=== PATIENT | male | born 1940 | race Caucasian/White ===

== ENCOUNTER 2018-01-19 07:53 | Day surgery (SDC) | payer MEDICARE, BC ==
[~2018-01-19 07:53] MED LIST: Bacitracin Oint 1 GM U/D Packet ONE; Bupivacaine 0.5% 50 ML MDV ONE; Lidocaine 1% with EPINEPHrine 1:100,000 50 ML MDV ONE; Midazolam 1 MG/ML 2 ML SDV ONE; Propofol 200 MG/20 ML SDV ONE; fentaNYL 100 MCG/2 ML SDV ONE
[2018-01-19] MEDS ORDERED: Dextrose 5%-Lactated Ringers 1,000 ML IV SCH (08:15)
--- NOTE | 2018-01-27 15:05 | OR ---
DATE OF PROCEDURE: 01/19/2018 PREOPERATIVE DIAGNOSIS: Status post shave biopsy, basal cell carcinoma at the base of left neck. POSTOPERATIVE DIAGNOSIS: Wide reexcision of basal cell carcinoma at the base of left neck with layered closure ([id number]). ANESTHESIA: Local plus IV sedation. INDICATION FOR PROCEDURE: The patient presents status post shave biopsy of basal cell carcinoma at the base of the left neck, more or less in the posterior aspect. This is the area were relatively straightforward, wide reexcision could be obtained without any difficulty in closure. The plan is to proceed with an excision of this with layered closure and frozen section monitoring of the margins. Potential risks of procedure including bleeding, infection, recurrence of the process were reviewed, and the patient wishes to proceed. DETAILS OF PROCEDURE: The patient was taken to the operating room and placed in a supine position. The area of concern had been marked out preoperatively. The patient was turned out into a right lateral decubitus position, and IV sedation administered and the area prepped and draped. An elliptically oriented, somewhat oblique incision was then made. This was an elliptical incision made roughly 2 to 3 mm margin from the closed edges of the area of involvement. This was carried down through the skin into the subcutaneous tissue and the skin underlying the subcutaneous tissue removed. The margins were then labeled for the pathologist. Frozen section showed all margins to be clear of any evidence of a basal carcinoma. The incision was then closed with a 5-0 Vicryl subdermal stitches, and then 5-0 Prolene skin stitch. Dressing was applied. The patient was taken to the recovery room in satisfactory condition. The removal of area of involvement plus adequate margin was measured at 1.5 cm and the entire incision length was 4.5 cm. Dressing was applied and the patient was taken to the recovery room in satisfactory condition. Alfredo Coburn MD /[id number]
== END 2018-01-19 11:20 | disposition home or self-care (01) ==
LOC: JP.SDS 07:53
PROVIDERS: ATTEND Surgery
DX: C44.41 Basal cell carcinoma of skin of scalp and neck (principal); I12.9 Hypertensive chronic kidney disease with stage 1 through stage 4 chronic kidney disease, or unspecified chronic kidney disease; N18.3 Chronic kidney disease, stage 3 (moderate); E78.5 Hyperlipidemia, unspecified; I25.10 Atherosclerotic heart disease of native coronary artery without angina pectoris; I48.91 Unspecified atrial fibrillation; G47.33 Obstructive sleep apnea (adult) (pediatric)
CPT/HCPCS: 11622; 12042; 88305; 88331; 88332; J2250; J2704; J3010; J7042

== ENCOUNTER 2018-12-31 18:25 | Emergency (ER) | payer MEDICARE, BC ==
[2018-12-31] MEDS: Sodium Chloride 0.9% 1,000 ML IV ONE (19:04)
[2018-12-31] MEDS: Amiodarone 150 MG/3 ML SDV IVPUSH ONE (19:06)
--- NOTE | 2018-12-31 19:09 | EDM.PDOC ---
ED HPI GENERAL MEDICAL PROBLEM - General Chief Complaint: Cardiovascular Problem Stated Complaint: DIZZY SPELLS Time Seen by Provider: 12/31/18 19:03 Source of Information: Reports: Patient, Family History Limitations: Reports: No Limitations - History of Present Illness INITIAL COMMENTS - FREE TEXT/NARRATIVE: PT WAS DEFRIBRILATED ONCE AT HOME TODAY. hE IS ALSO HAVING EPISODES WHERE HE FEELS BLaNK AND THEN HE IS NORMAL. hE DID NOT HAVE CHEST PAIN. hE WAS SOMEWHAT SOB. Onset: Today, Sudden Duration: Hour(s): Location: Reports: Chest, Other (PT HAD HIS DEFRIBRILLATOR OFF. ) Associated Symptoms: Reports: Other ( FEELING BLANK WHEN HIS RHYTHM. ) - Related Data Allergies Allergy/AdvReac Type Severity Reaction Status Date / Time No Known Allergies Allergy Verified 01/05/19 15:38 Home Meds: Home Meds Acetaminophen [Tylenol] 650 mg PO Q6HR PRN 01/15/18 [History] Carvedilol [Coreg] 25 mg PO BID 01/15/18 [History] Cholecalciferol (Vitamin D3) [Vitamin D3] 1,000 unit PO DAILY 01/15/18 [History] Folic Acid 400 mcg PO DAILY 01/15/18 [History] Furosemide [Lasix] 40 mg PO DAILY 01/15/18 [History] Lisinopril [Prinivil] 20 mg PO DAILY 01/15/18 [History] Methotrexate 7 tab PO WEEKLY 01/15/18 [History] Omeprazole 20 mg PO .QOD 01/15/18 [History] Pravastatin [Pravachol] 80 mg PO BEDTIME 01/15/18 [History] Tamsulosin HCl [Flomax] 0.4 mg PO DAILY 01/15/18 [History] Warfarin [Coumadin] 2.5 mg PO DAILY 01/15/18 [History] sulfaSALAzine [Azulfidine] 500 mg PO QID 01/15/18 [History] Amiodarone [Cordarone] 200 mg PO BID 01/05/19 [History] Cefdinir 300 mg PO Q12H 01/05/19 [History] metOLazone [Metolazone] 2.5 mg PO DAILY 01/05/19 [History] Past Medical History HEENT History: Reports: Cataract, Impaired Vision Other HEENT History: wear glasses Cardiovascular History: Reports: Afib, CAD, High Cholesterol, Hypertension, [place] Respiratory History: Reports: Sleep Apnea Gastrointestinal History: Reports: GERD Genitourinary History: Reports: Renal Disease Musculoskeletal History: Reports: RA Neurological History: Reports: Migraines Oncologic (Cancer) History: Reports: Basal Cell Carcinoma - Infectious Disease History Infectious Disease History: Reports: Chicken Pox, Measles - Past Surgical History HEENT Surgical History: Reports: Adenoidectomy, Cataract Surgery, Tonsillectomy Cardiovascular Surgical History: Reports: Other (See Below) Other Cardiovascular Surgeries/Procedures: defib GI Surgical History: Reports: Colonoscopy, Hernia, Inguinal Social & Family History - Family History Family Medical History: Noncontributory - Tobacco Use Smoking Status *Q: Never Smoker - Caffeine Use Caffeine Use: Reports: None - Recreational Drug Use Recreational Drug Use: No ED ROS GENERAL - Review of Systems Review Of Systems: See Below Constitutional: Reports: No Symptoms HEENT: Reports: No Symptoms Respiratory: Reports: Shortness of Breath Cardiovascular: Reports: Palpitations, Other ( FEELING LIKE THE RHYTHM WAS DIFFERENT SEVERAL TIMES TODAY. ) Endocrine: Reports: No Symptoms GI/Abdominal: Reports: No Symptoms Musculoskeletal: Reports: No Symptoms Skin: Reports: No Symptoms ED EXAM, GENERAL - Physical Exam Exam: See Below Free Text/Narrative:: PT ARRIVED BECAUS HIS DEFRIBRILATOR WENT OFF ONCE. hE ALSO HAS HAD EPISODES WHERE HE DOES NOT FEEL LIKE HIS RHYTHM IS RIGHT. aT THAT TIME HE HAS A BLANK FEELING. hE HAS NOT HAD CHEST PAIN Exam Limited By: No Limitations General Appearance: Alert, Moderate Distress, Other (PUPILS EQUAL AND REACTIVE. ) Ears: Normal TMs Nose: Normal Inspection Throat/Mouth: Normal Inspection Head: Atraumatic Neck: Normal Inspection Respiratory/Chest: No Respiratory Distress, Other (HE HAS NOTED RECENTLY WHEN HE EXERCISES THAT HE GETS QUITE SOB. ) Cardiovascular: Tachycardia, Other (PT IS HAVING RUNS OF vTACH. ) GI/Abdominal: Soft, Non-Tender (Male) Exam: Deferred Rectal (Males) Exam: Deferred Back Exam: Normal Inspection Extremities: Pedal Edema, Other (PT HAS PLUS 3 EDEMA. ) Neurological: Alert, Oriented, Normal Cognition Psychiatric: Normal Affect Course - Vital Signs Last Recorded V/S: Last Vital Signs Temp 36.3 C 12/31/18 19:56 Pulse 102 H 12/31/18 19:56 Resp 24 H 12/31/18 19:56 BP 175/94 H 12/31/18 19:56 Pulse Ox 94 L 12/31/18 19:56 - Orders/Labs/Meds Labs: Laboratory Tests 12/31/18 12/31/18 12/31/18 Range/Units 18:47 18:47 18:48 WBC 7.0 (4.5-11.0) K/uL RBC 3.86 L (4.30-5.90) M/uL Hgb 12.5 (12.0-15.0) g/dL Hct 38.2 L (40.0-54.0) % MCV 99 H (80-98) fL MCH 32 H (27-31) pg MCHC 33 (32-36) % Plt Count 175 (150-400) K/uL Neut % (Auto) 61 (36-66) % Lymph % (Auto) 14 L (24-44) % [place] % (Auto) 23 H (2-6) % Eos % (Auto) 1 L (2-4) % Baso % (Auto) 1 (0-1) % Sodium 135 L (140-148) mmol/L Potassium 3.8 (3.6-5.2) mmol/L Chloride 99 L (100-108) mmol/L Carbon Dioxide 27 (21-32) mmol/L Anion Gap 12.8 (5.0-14.0) mmol/L BUN 13 (7-18) mg/dL Creatinine 1.1 (0.8-1.3) mg/dL Est Cr Clr Drug Dosing 61.73 mL/min Estimated GFR (MDRD) > 60 (>60) Glucose 109 H (74-106) mg/dL Calcium 8.7 (8.5-10.1) mg/dL Magnesium (1.8-2.4) mg/dL Total Bilirubin 0.9 (0.2-1.0) mg/dL AST 31 (15-37) U/L ALT 27 (12-78) U/L Alkaline Phosphatase 79 (46-116) U/L Troponin I (0.000-0.056) ng/mL NT-Pro-B Natriuret Pep (5-450) pg/mL Total Protein 7.2 (6.4-8.2) g/dL Albumin 3.2 L (3.4-5.0) g/dL Globulin 4.0 H (2.3-3.5) g/dL Albumin/Globulin Ratio 0.8 L (1.2-2.2) Urine Color Yellow Urine Appearance Clear Urine pH 6.0 (4.5-8.0) Ur Specific [place] 1.015 (1.008-1.030) Urine Protein Trace (NEGATIVE) mg/dL Urine Glucose (UA) Normal (NEGATIVE) mg/dL Urine Ketones Negative (NEGATIVE) mg/dL Urine Occult Blood Moderate (NEGATIVE) Urine Nitrite Negative (NEGAITVE) Urine Bilirubin Negative (NEGATIVE) Urine Urobilinogen Normal (NORMAL) mg/dL Ur Leukocyte Esterase Negative (NEGATIVE) Urine RBC 5-10 H (0-5) Urine WBC Not seen (0-5) Ur Epithelial Cells Not seen Amorphous Sediment Not seen Urine Bacteria Rare Urine Mucus Not seen 12/31/18 12/31/18 12/31/18 Range/Units 19:10 19:17 19:18 WBC (4.5-11.0) K/uL RBC (4.30-5.90) M/uL Hgb (12.0-15.0) g/dL Hct (40.0-54.0) % MCV (80-98) fL MCH (27-31) pg MCHC (32-36) % Plt Count (150-400) K/uL Neut % (Auto) (36-66) % Lymph % (Auto) (24-44) % [place] % (Auto) (2-6) % Eos % (Auto) (2-4) % Baso % (Auto) (0-1) % Sodium (140-148) mmol/L Potassium (3.6-5.2) mmol/L Chloride (100-108) mmol/L Carbon Dioxide (21-32) mmol/L Anion Gap (5.0-14.0) mmol/L BUN (7-18) mg/dL Creatinine (0.8-1.3) mg/dL Est Cr Clr Drug Dosing mL/min Estimated GFR (MDRD) (>60) Glucose (74-106) mg/dL Calcium (8.5-10.1) mg/dL Magnesium 1.7 L (1.8-2.4) mg/dL Total Bilirubin (0.2-1.0) mg/dL AST (15-37) U/L ALT (12-78) U/L Alkaline Phosphatase (46-116) U/L Troponin I 0.032 (0.000-0.056) ng/mL NT-Pro-B Natriuret Pep 6300 H (5-450) pg/mL Total Protein (6.4-8.2) g/dL Albumin (3.4-5.0) g/dL Globulin (2.3-3.5) g/dL Albumin/Globulin Ratio (1.2-2.2) Urine Color Urine Appearance Urine pH (4.5-8.0) Ur Specific [place] (1.008-1.030) Urine Protein (NEGATIVE) mg/dL Urine Glucose (UA) (NEGATIVE) mg/dL Urine Ketones (NEGATIVE) mg/dL Urine Occult Blood (NEGATIVE) Urine Nitrite (NEGAITVE) Urine Bilirubin (NEGATIVE) Urine Urobilinogen (NORMAL) mg/dL Ur Leukocyte Esterase (NEGATIVE) Urine RBC (0-5) Urine WBC (0-5) Ur Epithelial Cells Amorphous Sediment Urine Bacteria Urine Mucus Meds: Medications Discontinued Medications Generic Name Dose Route Start Last Admin Trade Name Freq PRN Reason Stop Dose Admin Amiodarone HCl 150 mg 12/31/18 18:50 12/31/18 19:06 Cordarone IVPUSH 12/31/18 18:51 150 mg ONETIME ONE Administration Furosemide 60 mg 12/31/18 19:12 12/31/18 19:20 Lasix IVPUSH 12/31/18 19:13 60 mg ONETIME ONE Administration Amiodarone HCl/Dextrose Confirm 12/31/18 18:47 12/31/18 19:58 Nexterone In Dextrose 150 Mg/100 Ml Administered 12/31/18 18:48 Not Given Dose 100 mls @ as directed IV .STK-MED ONE Sodium Chloride 1,000 mls @ 999 mls/hr 12/31/18 18:53 12/31/18 19:31 Normal Saline IV 12/31/18 19:53 125 mls/hr .BOLUS ONE Infusion Amiodarone HCl 450 mg/ 250 mls @ 33.33 mls/hr 12/31/18 19:00 12/31/18 19:03 Dextrose/Water IV 1 mg/min ASDIRECTED MARTI 33.33 mls/hr Administration Protocol 1 MG/MIN Magnesium Sulfate 2 gm/ Premix 50 mls @ 12.5 mls/hr 12/31/18 19:41 12/31/18 19:44 IV 12/31/18 23:40 12.5 mls/hr ONETIME ONE Administration Lidocaine HCl 10 ml 12/31/18 19:15 12/31/18 19:17 Xylocaine 2% Jelly MUCMEM 12/31/18 19:16 10 ml ONETIME ONE Administration Lidocaine HCl Confirm 12/31/18 19:15 12/31/18 19:32 Xylocaine 2% Jelly Administered 12/31/18 19:16 Not Given Dose 10 ml .ROUTE .[facility] ONE - Re-Assessments/Exams Free Text/Narrative Re-Assessment/Exam: 12/31/18 19:23 PT WAS GIVEN AMIRODONE 150 IV BOLUS AND A DRIP WAS STARTED. a CHEST XRAY LOOKED LIKE HE HAD A FLUID OVERLOAD IN HIS CHEST. hE HAD A NORMAL WBC. 12/31/18 19:24 URINE WAS CLEAR. hE WAS GIVEN 60 MG IV PUSH TO UNLOAD THE FLUID. Departure - Departure Time of Disposition: 20:40 Disposition: DC/Tfer to Acute Hospital 02 Reason for Transfer *Q: Primary PCI Indicated Condition: Fair Clinical Impression: Ventricular tachycardia, Defibrillator discharge, Fluid overload Referrals: Margot Rhoades PA [Primary Care Provider] - Forms: ED Department Discharge Care Plan Goals: TRANSFER TO [facility]
[2018-12-31] MEDS: Lidocaine 2% Jelly 10 ML Urojet MUCMEM ONE (19:17)
[2018-12-31] MEDS: Furosemide 40 MG/4 ML VIAL IVPUSH ONE (19:20)
[2018-12-31] MEDS: Lidocaine 2% Jelly 10 ML Urojet ONE (19:32)
[2018-12-31] MEDS: Magnesium Sulfate/Water 2 GM in Premix Bag 1 BAG IV ONE (19:44)
--- NOTE | 2018-12-31 19:57 | CRLCR ---
INDICATION: Tachycardia. COMPARISON: None. TECHNIQUE: One AP view. IMPRESSION: Heart size within normal limits. Low lung volumes. Hazy reticular interstitial markings diffusely. No definitive focal pneumonia. Left-sided pacing body and transvenous wires in the right heart. No significant acute bone findings. Dictated by Jason Sanford MD @ Dec 31 2018 7:54PM Signed by Dr. Jason Sanford @ Dec 31 2018 7:56PM
== END 2018-12-31 20:25 ==
LOC: JP.ED 18:25
DX: T82.198A Other mechanical complication of other cardiac electronic device, initial encounter (principal); I47.2 Ventricular tachycardia; E87.70 Fluid overload, unspecified; I10 Essential (primary) hypertension; I48.91 Unspecified atrial fibrillation; I25.10 Atherosclerotic heart disease of native coronary artery without angina pectoris; E78.00 Pure hypercholesterolemia, unspecified; I25.2 Old myocardial infarction; K21.9 Gastro-esophageal reflux disease without esophagitis; Z79.899 Other long term (current) drug therapy
CPT/HCPCS: 36415; 51702; 71045; 80053; 81001; 83735; 83880; 84484; 85025; 93005; 96365; 96367; 96375; 96376; 99285; J0282; J1940; J3475; J7030; J7060

== ENCOUNTER 2019-01-05 15:09 | Inpatient (IN) | payer MEDICARE, BC ==
[2019-01-05] MEDS ORDERED: Sodium Chloride 0.9% 10 ML Syringe FLUSH PRN ×2 (16:58→20:16)
[2019-01-05] MEDS ORDERED: Furosemide 40 MG/4 ML VIAL IVPUSH ONE (17:00)
--- NOTE | 2019-01-05 17:04 | EDM.PDOC ---
ED HPI GENERAL MEDICAL PROBLEM - General Chief Complaint: General Stated Complaint: SOB Time Seen by Provider: 01/05/19 16:29 Source of Information: Reports: Patient, Family, Old Records, RN Notes Reviewed History Limitations: Reports: No Limitations - History of Present Illness INITIAL COMMENTS - FREE TEXT/NARRATIVE: 78-year-old gentleman presents to emergency department day complaint of a dizzy feeling and more shortness of breath than usual does have a known history of systolic congestive heart failure ejection fraction between 30 and 35% recently had his AICD provider shock for ventricular tachycardia. Was admitted the hospital underwent echocardiogram and angiograph medications were adjusted recently added amiodarone and metolazone since discharge from the hospital. Has recently completed a course of Ceftin. He describes the dizziness as a fall feeling feels lightheaded has had some issues of near syncope in the past - Related Data Allergies Allergy/AdvReac Type Severity Reaction Status Date / Time No Known Allergies Allergy Verified 01/05/19 15:38 Home Meds: Home Meds Acetaminophen [Tylenol] 650 mg PO Q6HR PRN 01/15/18 [History] Carvedilol [Coreg] 25 mg PO BID 01/15/18 [History] Cholecalciferol (Vitamin D3) [Vitamin D3] 1,000 unit PO DAILY 01/15/18 [History] Folic Acid 400 mcg PO DAILY 01/15/18 [History] Furosemide [Lasix] 40 mg PO DAILY 01/15/18 [History] Lisinopril [Prinivil] 20 mg PO DAILY 01/15/18 [History] Methotrexate 7 tab PO WEEKLY 01/15/18 [History] Omeprazole 20 mg PO .QOD 01/15/18 [History] Pravastatin [Pravachol] 80 mg PO BEDTIME 01/15/18 [History] Tamsulosin HCl [Flomax] 0.4 mg PO DAILY 01/15/18 [History] Warfarin [Coumadin] 2.5 mg PO DAILY 01/15/18 [History] sulfaSALAzine [Azulfidine] 500 mg PO QID 01/15/18 [History] Amiodarone [Cordarone] 200 mg PO BID 01/05/19 [History] Cefdinir 300 mg PO Q12H 01/05/19 [History] metOLazone [Metolazone] 2.5 mg PO DAILY 01/05/19 [History] Past Medical History HEENT History: Reports: Cataract, Impaired Vision Other HEENT History: wear glasses Cardiovascular History: Reports: Afib, CAD, Heart Failure (Systolic), High Cholesterol, Hypertension, [place] Respiratory History: Reports: Sleep Apnea Gastrointestinal History: Reports: GERD Genitourinary History: Reports: Renal Disease Musculoskeletal History: Reports: RA Neurological History: Reports: Migraines Oncologic (Cancer) History: Reports: Basal Cell Carcinoma - Infectious Disease History Infectious Disease History: Reports: Chicken Pox, Measles - Past Surgical History Head Surgeries/Procedures: Reports: None HEENT Surgical History: Reports: Adenoidectomy, Cataract Surgery, Tonsillectomy Cardiovascular Surgical History: Reports: Other (See Below) Other Cardiovascular Surgeries/Procedures: defib. angiogram Respiratory Surgical History: Reports: None GI Surgical History: Reports: Colonoscopy, Hernia, Inguinal Male Surgical History: Reports: None Neurological Surgical History: Reports: None Oncologic Surgical History: Reports: None Social & Family History - Family History Family Medical History: Noncontributory - Tobacco Use Smoking Status *Q: Never Smoker Second Hand Smoke Exposure: No - Caffeine Use Caffeine Use: Reports: Tea - Recreational Drug Use Recreational Drug Use: No ED ROS GENERAL - Review of Systems Review Of Systems: See Below Constitutional: Reports: No Symptoms HEENT: Reports: No Symptoms Respiratory: Reports: Shortness of Breath Cardiovascular: Reports: Dyspnea on Exertion, Lightheadedness GI/Abdominal: Reports: No Symptoms : Reports: No Symptoms ED EXAM, GENERAL - Physical Exam Exam: See Below Exam Limited By: No Limitations General Appearance: Alert, WD/WN, No Apparent Distress Neck: Normal Inspection, Supple, Non-Tender, Full Range of Motion Respiratory/Chest: No Respiratory Distress, No Accessory Muscle Use, Decreased Breath Sounds, Crackles Cardiovascular: Regular Rate, Rhythm, No Murmur GI/Abdominal: Soft, Non-Tender Course - Vital Signs Last Recorded V/S: Last Vital Signs Temp 97.3 F 01/05/19 15:26 Pulse 85 01/05/19 17:47 Resp 21 H 01/05/19 17:47 BP 136/67 01/05/19 17:47 Pulse Ox 91 L 01/05/19 17:47 - Orders/Labs/Meds Orders: Active Orders 24 hr Category Date Time Status Cardiac Monitoring [RC] .As Directed Care 01/05/19 16:58 Active EKG Documentation Completion [RC] ASDIRECTED Care 01/05/19 17:03 Active Sodium Chloride 0.9% [Saline Flush] Med 01/05/19 16:58 Active 10 ml FLUSH ASDIRECTED PRN Saline Lock Insert [OM.PC] Stat Oth 01/05/19 16:58 Ordered EKG 12 Lead [EK] Stat Ther 01/05/19 17:03 Ordered Medication Orders Sodium Chloride (Saline Flush) 10 ml FLUSH ASDIRECTED PRN PRN Reason: Keep Vein Open Last Admin: 01/05/19 17:10 Dose: 10 ml Labs: Laboratory Tests 01/05/19 01/05/19 01/05/19 Range/Units 17:00 17:00 17:00 WBC 7.2 (4.5-11.0) K/uL RBC 3.67 L (4.30-5.90) M/uL Hgb 11.7 L (12.0-15.0) g/dL Hct 36.2 L (40.0-54.0) % MCV 99 H (80-98) fL MCH 32 H (27-31) pg MCHC 32 (32-36) % Plt Count 222 (150-400) K/uL Neut % (Auto) 61 (36-66) % Lymph % (Auto) 13 L (24-44) % [place] % (Auto) 22 H (2-6) % Eos % (Auto) 3 (2-4) % Baso % (Auto) 1 (0-1) % PT 16.9 H (9.5-12.0) sec INR 1.58 H (0.80-1.20) Sodium 135 L (140-148) mmol/L Potassium 3.6 (3.6-5.2) mmol/L Chloride 97 L (100-108) mmol/L Carbon Dioxide 29 (21-32) mmol/L Anion Gap 12.6 (5.0-14.0) mmol/L BUN 17 (7-18) mg/dL Creatinine 1.2 (0.8-1.3) mg/dL Est Cr Clr Drug Dosing 56.58 mL/min Estimated GFR (MDRD) 59 L (>60) Glucose 120 H (74-106) mg/dL Calcium 8.7 (8.5-10.1) mg/dL Total Bilirubin 1.0 (0.2-1.0) mg/dL AST 50 H (15-37) U/L ALT 41 (12-78) U/L Alkaline Phosphatase 86 (46-116) U/L Troponin I 0.032 (0.000-0.056) ng/mL NT-Pro-B Natriuret Pep (5-450) pg/mL Total Protein 6.9 (6.4-8.2) g/dL Albumin 2.7 L (3.4-5.0) g/dL Globulin 4.2 H (2.3-3.5) g/dL Albumin/Globulin Ratio 0.6 L (1.2-2.2) 01/05/19 Range/Units 17:00 WBC (4.5-11.0) K/uL RBC (4.30-5.90) M/uL Hgb (12.0-15.0) g/dL Hct (40.0-54.0) % MCV (80-98) fL MCH (27-31) pg MCHC (32-36) % Plt Count (150-400) K/uL Neut % (Auto) (36-66) % Lymph % (Auto) (24-44) % [place] % (Auto) (2-6) % Eos % (Auto) (2-4) % Baso % (Auto) (0-1) % PT (9.5-12.0) sec INR (0.80-1.20) Sodium (140-148) mmol/L Potassium (3.6-5.2) mmol/L Chloride (100-108) mmol/L Carbon Dioxide (21-32) mmol/L Anion Gap (5.0-14.0) mmol/L BUN (7-18) mg/dL Creatinine (0.8-1.3) mg/dL Est Cr Clr Drug Dosing mL/min Estimated GFR (MDRD) (>60) Glucose (74-106) mg/dL Calcium (8.5-10.1) mg/dL Total Bilirubin (0.2-1.0) mg/dL AST (15-37) U/L ALT (12-78) U/L Alkaline Phosphatase (46-116) U/L Troponin I (0.000-0.056) ng/mL NT-Pro-B Natriuret Pep 4233 H (5-450) pg/mL Total Protein (6.4-8.2) g/dL Albumin (3.4-5.0) g/dL Globulin (2.3-3.5) g/dL Albumin/Globulin Ratio (1.2-2.2) Meds: Medications Generic Name Dose Route Start Last Admin Trade Name Freq PRN Reason Stop Dose Admin Sodium Chloride 10 ml 01/05/19 16:58 01/05/19 17:10 Saline Flush FLUSH 10 ml ASDIRECTED PRN Administration Keep Vein Open Discontinued Medications Generic Name Dose Route Start Last Admin Trade Name Freq PRN Reason Stop Dose Admin Furosemide 80 mg 01/05/19 17:00 01/05/19 17:09 Lasix IVPUSH 01/05/19 17:01 80 mg ONETIME ONE Administration Departure - Departure Time of Disposition: 18:11 Disposition: Refer to Observation Condition: Fair Clinical Impression: CHF, Congestive heart failure - Discharge Information Referrals: Margot Rhoades PA [Primary Care Provider] - Forms: ED Department Discharge - My Orders Last 24 Hours: My Active Orders 01/05/19 16:58 Cardiac Monitoring [RC] .As Directed Sodium Chloride 0.9% [Saline Flush] 10 ml FLUSH ASDIRECTED PRN Saline Lock Insert [OM.PC] Stat 01/05/19 17:03 EKG Documentation Completion [RC] ASDIRECTED EKG 12 Lead [EK] Stat - Assessment/Plan Last 24 Hours: My Active Orders 01/05/19 16:58 Cardiac Monitoring [RC] .As Directed Sodium Chloride 0.9% [Saline Flush] 10 ml FLUSH ASDIRECTED PRN Saline Lock Insert [OM.PC] Stat 01/05/19 17:03 EKG Documentation Completion [RC] ASDIRECTED EKG 12 Lead [EK] Stat Plan: Assessment Acuity = acute on chronic Site and laterality = exacerbation systolic congestive heart failure , complicated in a patient with known history of atrial fibrillation on chronic anticoagulation therapy Etiology = unknown etiology Manifestations = hypoxia Location of injury = Home Lab values = hemoglobin low 11.7 consistent neck chromic anemia INR subtherapeutic 1.58 BNP elevated at 4233 troponin is within normal limits 0.032 chest x-ray shows no acute process EKG demonstrates a paced rhythm Plan Call discuss case hospitalist on-call at 1800 the agreed to come and evaluate the patient emergency department for admission he was given 80 mg Lasix IV in the ED however remains hypoxic on 1 L of oxygen This note was dictated using [employer] voice recognition software please call with any questions on syntax or grammar.
--- NOTE | 2019-01-05 17:48 | CRLCR ---
INDICATION: sob INDICATION: Shortness of breath TECHNIQUE: Chest 1 view. COMPARISON: FINDINGS: Cardiovascular and mediastinum: Heart size is upper limits of normal and stable. Left-sided transvenous pacer device.. Mediastinum is within normal limits. Lungs and pleural space: Lungs are clear. No sign of infiltrate or mass. No sign of pleural effusion. No pneumothorax. Bones and soft tissues: No significant findings. IMPRESSION: No acute pulmonary or cardiac abnormalities. Dictated by Rey Moran MD @ 01/05/2019 5:47:35 PM Dictated by: Rey Moran MD @ 01/05/2019 17:47:44 (Electronically Signed)
--- NOTE | 2019-01-05 19:29 | PCM.HP ---
H&P History of Present Illness - General Date of Service: 01/05/19 Admit Problem/Dx: Admission Diagnosis/Problem Admission Diagnosis/Problem CHF, Congestive heart failure Source of Information: Patient, Family ( Wendy), Provider History Limitations: Reports: No Limitations - History of Present Illness Initial Comments - Free Text/Narative: - History of Present Illness 78-year-old gentleman presents to emergency department day complaint of a dizzy feeling and more shortness of breath than usual does have a known history of systolic congestive heart failure ejection fraction between 30 and 35% recently had his AICD provided shock for ventricular tachycardia. Was admitted (12/31/18) the hospital underwent echocardiogram and angiograph medications were adjusted recently added amiodarone and metolazone since discharge (01/03/19) from the hospital. Has recently completed a course of Ceftin. He describes the dizziness as "a fall feeling" feels lightheaded has had some issues of near syncope in the past. He was seen today at [facility] by Dr. Laura, Primary Care. She noted the shortness of breath, told Mr. and Mrs. Mancia if the shortness of breath worsen to go to the ER. Assessment Acuity = acute on chronic Site and laterality = exacerbation systolic congestive heart failure, complicated in a patient with known history of atrial fibrillation on chronic anticoagulation therapy Etiology = unknown etiology Manifestations = hypoxia with dizziness Lab values = hemoglobin low 11.7 consistent chromic anemia, INR subtherapeutic 1.58, BNP elevated at 4233, troponin is within normal limits 0.032, chest x- ray shows no acute process, EKG demonstrates a paced rhythm Plan Call discuss case hospitalist on-call at 1800 the agreed to come and evaluate the patient emergency department for admission he was given 80 mg Lasix IV in the ED however remains hypoxic on 1 L of oxygen Onset of Symptoms: Reports: Today Duration of Symptoms: Reports: Hour(s): Location: Reports: Generalized (shortness of breath.) Quality: Reports: Same as Previous Episode Severity: Moderate Improves with: Reports: Eating Worsens with: Reports: Movement Associated Symptoms: Reports: Shortness of Breath, Weakness - Related Data Allergies/Adverse Reactions: Allergies Allergy/AdvReac Type Severity Reaction Status Date / Time No Known Allergies Allergy Verified 01/05/19 15:38 Home Medications: Home Meds Acetaminophen [Tylenol] 650 mg PO Q6HR PRN 01/15/18 [History] Carvedilol [Coreg] 25 mg PO BID 01/15/18 [History] Cholecalciferol (Vitamin D3) [Vitamin D3] 1,000 unit PO DAILY 01/15/18 [History] Folic Acid 400 mcg PO DAILY 01/15/18 [History] Furosemide [Lasix] 40 mg PO DAILY 01/15/18 [History] Lisinopril [Prinivil] 20 mg PO DAILY 01/15/18 [History] Methotrexate 7 tab PO WEEKLY 01/15/18 [History] Omeprazole 20 mg PO .QOD 01/15/18 [History] Pravastatin [Pravachol] 80 mg PO BEDTIME 01/15/18 [History] Tamsulosin HCl [Flomax] 0.4 mg PO DAILY 01/15/18 [History] Warfarin [Coumadin] 2.5 mg PO DAILY 01/15/18 [History] sulfaSALAzine [Azulfidine] 500 mg PO QID 01/15/18 [History] Amiodarone [Cordarone] 200 mg PO BID 01/05/19 [History] Cefdinir 300 mg PO Q12H 01/05/19 [History] metOLazone [Metolazone] 2.5 mg PO DAILY 01/05/19 [History] Past Medical History HEENT History: Reports: Cataract, Impaired Vision Other HEENT History: wear glasses Cardiovascular History: Reports: Afib, CAD, Heart Failure (Systolic), High Cholesterol, Hypertension, IA Respiratory History: Reports: Sleep Apnea Gastrointestinal History: Reports: GERD Genitourinary History: Reports: Renal Disease Musculoskeletal History: Reports: RA Neurological History: Reports: Migraines Oncologic (Cancer) History: Reports: Basal Cell Carcinoma - Infectious Disease History Infectious Disease History: Reports: Chicken Pox, Measles - Past Surgical History Head Surgeries/Procedures: Reports: None HEENT Surgical History: Reports: Adenoidectomy, Cataract Surgery, Tonsillectomy Cardiovascular Surgical History: Reports: Other (See Below) Other Cardiovascular Surgeries/Procedures: defib. angiogram Respiratory Surgical History: Reports: None GI Surgical History: Reports: Colonoscopy, Hernia, Inguinal Male Surgical History: Reports: None Neurological Surgical History: Reports: None Oncologic Surgical History: Reports: None Social & Family History - Family History Family Medical History: Noncontributory - Tobacco Use Smoking Status *Q: Never Smoker Second Hand Smoke Exposure: No - Caffeine Use Caffeine Use: Reports: Tea - Recreational Drug Use Recreational Drug Use: No H&P Review of Systems - Review of Systems: Review Of Systems: See Below General: Reports: Fatigue HEENT: Reports: Glasses Pulmonary: Reports: Shortness of Breath, Cough, Other (recent treatment for pnuemonia, antibiotics started on 12/31/2018.) Cardiovascular: Reports: Dyspnea on Exertion, Edema, Lightheadedness Gastrointestinal: Reports: No Symptoms, Other (reports had a large formed stool prior to going to ER. denies any black tarry or blood stools) Genitourinary: Reports: No Symptoms Musculoskeletal: Reports: No Symptoms Skin: Reports: No Symptoms Psychiatric: Reports: No Symptoms Neurological: Reports: Dizziness (chronic), Pre-Existing Deficit Hematologic/Lymphatic: Reports: Easy Bleeding (Coumadin therapy), Easy Bruising (Coumadin therapy) Exam - Exam Exam: See Below - Vital Signs Vital Signs: Last Vital Signs Temp 36.3 C 01/05/19 15:26 Pulse 83 01/05/19 19:24 Resp 26 H 01/05/19 19:24 BP 129/72 01/05/19 19:24 Pulse Ox 90 L 01/05/19 19:24 Weight: 97.976 kg - Exam Quality Assessment: Supplemental Oxygen (2l per NC), DVT Prophylaxis, Other ( left AC saline lock) General: Alert, Oriented, Cooperative, Mild Distress (oxygen saturation decrease to low 80's with any activity, increase Oxygen to 2 l per NC.) HEENT: PERRLA, Conjunctiva Clear, EACs Clear, EOMI, Hearing Intact, Mucosa Moist & [place], Posterior Pharynx Clear, Glasses Neck: Supple, Trachea Midline, 2 Lungs: Decreased Breath Sounds, Crackles (bilateral, inspiration and expiratory) Cardiovascular: Irregular Rhythm GI/Abdominal Exam: Normal Bowel Sounds, Soft, Non-Tender (Male) Exam: Deferred Rectal (Males) Exam: Deferred Back Exam: Normal Inspection, Full Range of Motion Extremities: Normal Range of Motion, Non-Tender, Pedal Edema (1+ edema noted to lower legs. ) Skin: Warm, Dry, Intact Neurological: Strength Equal Bilateral, Normal Speech, Normal Tone Neuro Extensive - Mental Status: Alert, Oriented x3, Normal Mood/Affect, Normal Cognition Psychiatric: Alert, Normal Affect, Normal Mood - Patient Data Lab Results Last 24 hrs: Laboratory Results - last 24 hr 01/05/19 01/05/19 01/05/19 Range/Units 17:00 17:00 17:00 WBC 7.2 (4.5-11.0) K/uL RBC 3.67 L (4.30-5.90) M/uL Hgb 11.7 L (12.0-15.0) g/dL Hct 36.2 L (40.0-54.0) % MCV 99 H (80-98) fL MCH 32 H (27-31) pg MCHC 32 (32-36) % Plt Count 222 (150-400) K/uL Neut % (Auto) 61 (36-66) % Lymph % (Auto) 13 L (24-44) % [place] % (Auto) 22 H (2-6) % Eos % (Auto) 3 (2-4) % Baso % (Auto) 1 (0-1) % PT 16.9 H (9.5-12.0) sec INR 1.58 H (0.80-1.20) Sodium 135 L (140-148) mmol/L Potassium 3.6 (3.6-5.2) mmol/L Chloride 97 L (100-108) mmol/L Carbon Dioxide 29 (21-32) mmol/L Anion Gap 12.6 (5.0-14.0) mmol/L BUN 17 (7-18) mg/dL Creatinine 1.2 (0.8-1.3) mg/dL Est Cr Clr Drug Dosing 56.58 mL/min Estimated GFR (MDRD) 59 L (>60) Glucose 120 H (74-106) mg/dL Calcium 8.7 (8.5-10.1) mg/dL Total Bilirubin 1.0 (0.2-1.0) mg/dL AST 50 H (15-37) U/L ALT 41 (12-78) U/L Alkaline Phosphatase 86 (46-116) U/L Troponin I 0.032 (0.000-0.056) ng/mL NT-Pro-B Natriuret Pep (5-450) pg/mL Total Protein 6.9 (6.4-8.2) g/dL Albumin 2.7 L (3.4-5.0) g/dL Globulin 4.2 H (2.3-3.5) g/dL Albumin/Globulin Ratio 0.6 L (1.2-2.2) 01/05/19 Range/Units 17:00 WBC (4.5-11.0) K/uL RBC (4.30-5.90) M/uL Hgb (12.0-15.0) g/dL Hct (40.0-54.0) % MCV (80-98) fL MCH (27-31) pg MCHC (32-36) % Plt Count (150-400) K/uL Neut % (Auto) (36-66) % Lymph % (Auto) (24-44) % [place] % (Auto) (2-6) % Eos % (Auto) (2-4) % Baso % (Auto) (0-1) % PT (9.5-12.0) sec INR (0.80-1.20) Sodium (140-148) mmol/L Potassium (3.6-5.2) mmol/L Chloride (100-108) mmol/L Carbon Dioxide (21-32) mmol/L Anion Gap (5.0-14.0) mmol/L BUN (7-18) mg/dL Creatinine (0.8-1.3) mg/dL Est Cr Clr Drug Dosing mL/min Estimated GFR (MDRD) (>60) Glucose (74-106) mg/dL Calcium (8.5-10.1) mg/dL Total Bilirubin (0.2-1.0) mg/dL AST (15-37) U/L ALT (12-78) U/L Alkaline Phosphatase (46-116) U/L Troponin I (0.000-0.056) ng/mL NT-Pro-B Natriuret Pep 4233 H (5-450) pg/mL Total Protein (6.4-8.2) g/dL Albumin (3.4-5.0) g/dL Globulin (2.3-3.5) g/dL Albumin/Globulin Ratio (1.2-2.2) Result Diagrams: 01/05/19 17:00 01/05/19 17:00 - Problem List (1) CHF, Congestive heart failure SNOMED Code(s): 91203631 ICD Code: I50.9 - HEART FAILURE, UNSPECIFIED Status: Acute Priority: High Current Visit: Yes (2) Anticoagulated on Coumadin SNOMED Code(s): 33080149 ICD Code: Z79.01 - CONSERVATION AGENT (CURRENT) USE OF ANTICOAGULANTS Status: Acute Priority: Medium Current Visit: Yes (3) Arthritis, rheumatoid SNOMED Code(s): 92722837 ICD Code: M06.9 - RHEUMATOID ARTHRITIS, UNSPECIFIED Status: Acute Priority: Low Current Visit: No Qualifiers: Rheumatoid arthritis location: multiple sites (4) CKD (chronic kidney disease) stage 3, GFR 30-59 ml/min SNOMED Code(s): 421951056 ICD Code: N18.3 - CHRONIC KIDNEY DISEASE, STAGE 3 (MODERATE) Status: Acute Priority: Medium Current Visit: Yes Problem List Initiated/Reviewed/Updated: Yes Orders Last 24hrs: Active Orders 24 hr Category Date Time Status Patient Status Manage Transfer [TRANSFER] Routine ADT 01/05/19 19:12 Ordered Cardiac Monitoring [RC] .As Directed Care 01/05/19 16:58 Active EKG Documentation Completion [RC] ASDIRECTED Care 01/05/19 17:03 Active Sodium Chloride 0.9% [Saline Flush] Med 01/05/19 16:58 Active 10 ml FLUSH ASDIRECTED PRN Saline Lock Insert [OM.PC] Stat Oth 01/05/19 16:58 Ordered Resuscitation Status Routine Resus Stat 01/05/19 19:14 Ordered EKG 12 Lead [EK] Stat Ther 01/05/19 17:03 Ordered Medication Orders Sodium Chloride (Saline Flush) 10 ml FLUSH ASDIRECTED PRN PRN Reason: Keep Vein Open Last Admin: 01/05/19 17:10 Dose: 10 ml Assessment/Plan Comment:: ASSESSMENT AND PLAN OF CARE 78-year-old gentleman presents to emergency department day complaint of a dizzy feeling and more shortness of breath than usual does have a known history of systolic congestive heart failure ejection fraction between 30 and 35% recently had his AICD provided shock for ventricular tachycardia. Was admitted (12/31/18) the hospital underwent echocardiogram and angiograph medications were adjusted recently added amiodarone and metolazone since discharge (01/03/19) from the hospital. Has recently completed a course of Ceftin. He describes the dizziness as "a fall feeling" feels lightheaded has had some issues of near syncope in the past. He was seen today at [facility] by Dr. Laura, Primary Care. She noted the shortness of breath, told Mr. and Mrs. Jeredhaus if the shortness of breath worsen to go to the ER. Acuity = acute on chronic Site and laterality = exacerbation systolic congestive heart failure, complicated in a patient with known history of atrial fibrillation on chronic anticoagulation therapy Etiology = unknown etiology Manifestations = hypoxia with dizziness Lab values = hemoglobin low 11.7 consistent chromic anemia, INR subtherapeutic 1.58, BNP elevated at 4233, troponin is within normal limits 0.032, chest x- ray shows no acute process, EKG demonstrates a paced rhythm Call discuss case hospitalist on-call at 1800 the agreed to come and evaluate the patient emergency department for admission he was given 80 mg Lasix IV in the ED however remains hypoxic on 1 L of oxygen Plan to hospital for further care and treatment plan of care. CHF -Admit to [address] [place] [address] for further monitoring -IV Lasix 80 mg given in ER, Lasix 40 mg po in am. -telemetry with continuos pulse ox. -oxygen to keep sats greater than 95% -Advise to notify nurses of any chest pain or other symptoms -And a.m. labs: CBC, BMP On Coumadin for A-Fib, cardiac history positive AICD Pacer, last evaluation 2018 in [place], [place]. -Coumadin per protocol -ordered home medications -INR.PT in am Rheumatoid arthritis -Mtx weekly Chronic Kidney disease stage 3 -I&O -BMP in am Maintenance issues -Orders home meds: chronic medication -Nutrition: low salt diet -Ugalde catheter -not indicated at this time -DVT: SCD -PPI; PO Protonix 40mg daily -insomnia: Benadryl 25 mg po at hs. CODE STATUS: FULL Admission status: Admit Observation to [address] [place] [address] -I expect this patient to stay less than 24 hours, not to exceed 96 hours for evaluation and management of this problem. Disposition: home with Family Primary care provider: Dr. Laura, [facility] Hospitalist: Dr. Doss
[2019-01-05] MEDS ORDERED: diphenhydrAMINE 25 MG Cap PO PRN (20:16)
[2019-01-05] MEDS ORDERED: Morphine 2 MG/ML Syringe IVPUSH PRN (20:16)
[2019-01-05] MEDS ORDERED: Albuterol 0.083% 2.5 MG/3 ML Neb Soln NEB PRN (20:16)
[2019-01-05] MEDS ORDERED: Docusate Sodium 100 MG Cap PO PRN (20:16)
[2019-01-05] MEDS: Acetaminophen 325 MG Tab PO PRN (20:45)
[2019-01-05] MEDS ORDERED: Carvedilol 25 MG Tab PO SCH (21:00)
[2019-01-05] MEDS ORDERED: Cefdinir 300 MG Cap PO SCH (21:00)
[2019-01-05] MEDS ORDERED: Amiodarone 200 MG Tab PO SCH (21:00)
[2019-01-05] MEDS ORDERED: Pravastatin 20 MG Tab PO SCH (21:00)
[2019-01-05] MEDS: sulfaSALAzine 500 MG Tab PO SCH (21:28)
[2019-01-06] MEDS: Acetaminophen 325 MG Tab PO PRN (05:52)
[2019-01-06] MEDS: sulfaSALAzine 500 MG Tab PO SCH ×4 (05:56→21:48)
[2019-01-06] MEDS: Pantoprazole 40 MG Tab.CR PO SCH (07:41)
[2019-01-06] MEDS ORDERED: Tamsulosin 0.4 MG Cap.ER PO SCH (09:00)
[2019-01-06] MEDS ORDERED: Lisinopril 20 MG Tab PO SCH (09:00)
[2019-01-06] MEDS ORDERED: Pantoprazole 40 MG Tab.CR PO SCH (09:00)
[2019-01-06] MEDS ORDERED: Furosemide 20 MG Tab PO SCH (09:00)
[2019-01-06] MEDS ORDERED: Potassium Chloride 20 MEQ Tab.ER PO ONE (09:00)
[2019-01-06] MEDS ORDERED: FOLIC ACID 400 MCG PO SCH (09:00)
--- NOTE | 2019-01-06 10:44 | PCM.PN ---
- General Info Date of Service: 01/06/19 Subjective Update: there were no acute events overnight following admission. He does continue to feel short of breath. He does continue to have episodes of dizziness that come in waves but only last for a few seconds. He continues to require supplemental oxygen. He has not had any chest pain. His defibrillator has not discharged. He had an excellent response to diuresis overnight. Functional Status: Reports: Pain Controlled, Tolerating Diet - Review of Systems Pulmonary: Reports: Shortness of Breath Neurological: Reports: Dizziness - Patient Data Vitals - Most Recent: Last Vital Signs Temp 36.4 C 01/06/19 07:31 Pulse 75 01/06/19 07:31 Resp 16 01/06/19 07:31 BP 123/79 01/06/19 07:31 Pulse Ox 96 01/06/19 07:59 Weight - Most Recent: 91.898 kg I&O - Last 24 Hours: Intake & Output 01/05/19 01/06/19 01/06/19 22:59 06:59 14:59 Intake Total 120 Output Total 3100 1500 400 Balance -3100 -1380 -400 Lab Results Last 24 Hours: Laboratory Results - last 24 hr 01/05/19 01/05/19 01/05/19 Range/Units 17:00 17:00 17:00 WBC 7.2 (4.5-11.0) K/uL RBC 3.67 L (4.30-5.90) M/uL Hgb 11.7 L (12.0-15.0) g/dL Hct 36.2 L (40.0-54.0) % MCV 99 H (80-98) fL MCH 32 H (27-31) pg MCHC 32 (32-36) % Plt Count 222 (150-400) K/uL Neut % (Auto) 61 (36-66) % Lymph % (Auto) 13 L (24-44) % [place] % (Auto) 22 H (2-6) % Eos % (Auto) 3 (2-4) % Baso % (Auto) 1 (0-1) % PT 16.9 H (9.5-12.0) sec INR 1.58 H (0.80-1.20) Sodium 135 L (140-148) mmol/L Potassium 3.6 (3.6-5.2) mmol/L Chloride 97 L (100-108) mmol/L Carbon Dioxide 29 (21-32) mmol/L Anion Gap 12.6 (5.0-14.0) mmol/L BUN 17 (7-18) mg/dL Creatinine 1.2 (0.8-1.3) mg/dL Est Cr Clr Drug Dosing 56.58 mL/min Estimated GFR (MDRD) 59 L (>60) Glucose 120 H (74-106) mg/dL Calcium 8.7 (8.5-10.1) mg/dL Total Bilirubin 1.0 (0.2-1.0) mg/dL AST 50 H (15-37) U/L ALT 41 (12-78) U/L Alkaline Phosphatase 86 (46-116) U/L Troponin I 0.032 (0.000-0.056) ng/mL NT-Pro-B Natriuret Pep (5-450) pg/mL Total Protein 6.9 (6.4-8.2) g/dL Albumin 2.7 L (3.4-5.0) g/dL Globulin 4.2 H (2.3-3.5) g/dL Albumin/Globulin Ratio 0.6 L (1.2-2.2) 01/05/19 01/06/19 01/06/19 Range/Units 17:00 05:50 05:50 WBC 7.3 (4.5-11.0) K/uL RBC 3.67 L (4.30-5.90) M/uL Hgb 11.7 L (12.0-15.0) g/dL Hct 36.0 L (40.0-54.0) % MCV 98 (80-98) fL MCH 32 H (27-31) pg MCHC 33 (32-36) % Plt Count 220 (150-400) K/uL Neut % (Auto) 62 (36-66) % Lymph % (Auto) 12 L (24-44) % [place] % (Auto) 18 H (2-6) % Eos % (Auto) 6 H (2-4) % Baso % (Auto) 1 (0-1) % PT (9.5-12.0) sec INR (0.80-1.20) Sodium 137 L (140-148) mmol/L Potassium 3.1 L (3.6-5.2) mmol/L Chloride 97 L (100-108) mmol/L Carbon Dioxide 31 (21-32) mmol/L Anion Gap 12.1 (5.0-14.0) mmol/L BUN 17 (7-18) mg/dL Creatinine 1.2 (0.8-1.3) mg/dL Est Cr Clr Drug Dosing 56.58 mL/min Estimated GFR (MDRD) 59 L (>60) Glucose 103 (74-106) mg/dL Calcium 8.7 (8.5-10.1) mg/dL Total Bilirubin (0.2-1.0) mg/dL AST (15-37) U/L ALT (12-78) U/L Alkaline Phosphatase (46-116) U/L Troponin I (0.000-0.056) ng/mL NT-Pro-B Natriuret Pep 4233 H (5-450) pg/mL Total Protein (6.4-8.2) g/dL Albumin (3.4-5.0) g/dL Globulin (2.3-3.5) g/dL Albumin/Globulin Ratio (1.2-2.2) Med Orders - Current: Current Medications Acetaminophen (Tylenol) 650 mg PO Q4H PRN PRN Reason: Pain (Mild 1-3)/fever Last Admin: 01/06/19 05:52 Dose: 650 mg Albuterol (Proventil Neb Soln) 2.5 mg NEB Q4H PRN PRN Reason: Shortness Of Breath/wheezing Amiodarone HCl (Cordarone) 200 mg PO BID [facility] Carvedilol (Coreg) 25 mg PO BID MARTI Cefdinir (Omnicef) 300 mg PO BID [facility] Cholecalciferol (Vitamin D3) 1,000 units PO DAILY [facility] Diphenhydramine HCl (Benadryl) 25 mg PO BEDTIME PRN PRN Reason: Insomnia Last Admin: 01/05/19 20:46 Dose: 25 mg Docusate Sodium (Colace) 100 mg PO BID PRN PRN Reason: Constipation Last Admin: 01/05/19 21:28 Dose: 100 mg Folic Acid (Folic Acid) 0.5 mg PO DAILY [facility] Lisinopril (Prinivil) 20 mg PO DAILY [facility] Metolazone (Zaroxolyn) 2.5 mg PO DAILY [facility] Morphine Sulfate (Morphine) 2 mg IVPUSH Q2H PRN PRN Reason: Pain (severe 7-10) Pantoprazole Sodium (Protonix) 40 mg PO ACBREAKFAST [facility] Last Admin: 01/06/19 07:41 Dose: 40 mg Pravastatin 80mg Tab ((Ptom)) 0 each PO BEDTIME [facility] Sodium Chloride (Saline Flush) 10 ml FLUSH ASDIRECTED PRN PRN Reason: Keep Vein Open Sulfasalazine (Sulfasalazine) 500 mg PO QID [facility] Last Admin: 01/06/19 05:56 Dose: 500 mg Tamsulosin HCl (Flomax) 0.4 mg PO DAILY [facility] Discontinued Medications Amiodarone HCl (Cordarone) 200 mg PO BID [facility] Last Admin: 01/05/19 21:28 Dose: 200 mg Carvedilol (Coreg) 25 mg PO BID [facility] Last Admin: 01/05/19 21:27 Dose: 25 mg Cefdinir (Omnicef) 300 mg PO BID [facility] Last Admin: 01/05/19 21:28 Dose: 300 mg Furosemide (Lasix) 80 mg IVPUSH ONETIME ONE Stop: 01/05/19 17:01 Last Admin: 01/05/19 17:09 Dose: 80 mg Furosemide (Lasix) 40 mg PO DAILY [facility] Lisinopril (Prinivil) 20 mg PO DAILY [facility] Potassium Chloride (Klor-Con M20) 40 meq PO ONETIME ONE Stop: 01/06/19 09:01 Pravastatin Sodium (Pravachol) 80 mg PO BEDTIME [facility] Last Admin: 01/05/19 22:09 Dose: 80 mg Sodium Chloride (Saline Flush) 10 ml FLUSH ASDIRECTED PRN PRN Reason: Keep Vein Open Last Admin: 01/05/19 17:10 Dose: 10 ml Tamsulosin HCl (Flomax) 0.4 mg PO DAILY [facility] Warfarin Sodium (Coumadin) 2.5 mg PO DAILY@1300 [facility] - Exam Quality Assessment: Supplemental Oxygen General: Alert, Oriented, Cooperative, No Acute Distress HEENT: Pupils Equal Neck: JVD Lungs: Normal Respiratory Effort, Crackles (both bases and mid lung de la cruz ). No: Wheezing Cardiovascular: Regular Rate, Regular Rhythm, Murmurs, Gallops GI/Abdominal Exam: Soft, No Distention Extremities: Pedal Edema (trace bilateral ankle edema). No: Increased Warmth Skin: Warm, Dry Psy/Mental Status: Alert, Normal Affect - Problem List Review Problem List Initiated/Reviewed/Updated: Yes - My Orders Last 24 Hours: My Active Orders 01/06/19 10:42 Admission Status [Patient Status] [ADT] Routine 01/06/19 10:45 Furosemide [Lasix] 60 mg IVPUSH Q8H 01/06/19 13:00 Warfarin [Coumadin] 5 mg PO ONETIME ONE 01/06/19 21:00 Potassium Chloride [Klor-Con M20] 40 meq PO BID 01/07/19 05:00 BASIC METABOLIC PANEL,BMP [CHEM] Timed INR,PT,PROTHROMBIN TIME [COAG] Timed 01/07/19 13:00 Warfarin [Coumadin] 2.5 mg PO DAILY@1300 - Plan Plan:: ASSESSMENT AND PLAN - Acute decompensated systolic congestive heart failure - patient has pulmonary edema as well as JVD and a variety of other signs to suggest decompensated heart failure. He is doing better with diuresis but still has evidence for ongoing volume overload and hypoxic respiratory failure. -furosemide 2 doses today -cardiac monitoring -oxygen to keep sats greater than 92% -continue medical management Ventricular tachycardia - recent episodes discovered prompting transfer to tertiary care center for evaluation. Seems to be doing better now that he is on amiodarone. Currently in sinus and no tachycardia noted overnight. -Continue beta emily and amiodarone Paroxysmal atrial fibrillation - cardiac history positive AICD/Pacer, last evaluation 12/31/2018 in [place], [place]. currently in sinus rhythm with some PVCs. He is chronically anticoagulated. -continue amiodarone and additional medical management -warfarin 5 mg today -INR.PT in am Rheumatoid arthritis -Mtx weekly Chronic Kidney disease stage 3 -I&O -BMP in am Maintenance issues -Nutrition: low salt diet -Ugalde catheter -not indicated at this time -DVT: SCD -GI; PO Protonix 40mg daily -insomnia: Benadryl 25 mg po at hs. CODE STATUS: FULL Admission status - patient will be transitioned to inpatient status with decompensated congestive heart failure with hypoxic respiratory failure Disposition - I would anticipate discharge to home with Family Primary care provider: Dr. Laura, [facility] Eleuterio Doss M.D.
[2019-01-06] MEDS: Folic Acid 1 MG Tab PO SCH (10:45)
[2019-01-06] MEDS: Cholecalciferol (Vitamin D3) 1,000 Unit Tab PO SCH (10:45)
[2019-01-06] MEDS ORDERED: Furosemide 40 MG/4 ML VIAL IVPUSH SCH (10:45)
[2019-01-06] MEDS: Metolazone 2.5 MG Tab PO SCH (10:46)
[2019-01-06] MEDS ORDERED: Lisinopril 20 MG Tab (PTOM) PO SCH (11:00)
[2019-01-06] MEDS ORDERED: AMIODARONE 200 MG PO SCH (11:00)
[2019-01-06] MEDS ORDERED: Tamsulosin 0.4 MG Cap.ER (PTOM) PO SCH (11:00)
[2019-01-06] MEDS ORDERED: CEFDINIR 300 MG PO SCH (11:00)
[2019-01-06] MEDS ORDERED: CARVEDILOL 25 MG PO SCH (11:00)
[2019-01-06] MEDS ORDERED: Warfarin 5 MG Tab PO ONE (13:00)
[2019-01-06] MEDS ORDERED: WARFARIN 2.5 MG PO SCH (13:00)
[2019-01-06] MEDS: Potassium Chloride 20 MEQ Tab.ER PO SCH (16:17)
[2019-01-06] MEDS ORDERED: PRAVASTATIN 80 MG PO SCH (21:00)
[2019-01-06] MEDS: Amiodarone 200 MG Tab PO SCH (21:47)
[2019-01-06] MEDS: Pravastatin 20 MG Tab PO SCH (21:47)
[2019-01-06] MEDS: Cefdinir 300 MG Cap PO SCH (21:48)
[2019-01-06] MEDS: Carvedilol 25 MG Tab PO SCH (21:48)
[2019-01-07] MEDS: sulfaSALAzine 500 MG Tab PO SCH ×4 (06:04→21:50)
[2019-01-07] MEDS: Pantoprazole 40 MG Tab.CR PO SCH (07:37)
[2019-01-07] MEDS: Potassium Chloride 20 MEQ Tab.ER PO SCH ×2 (07:37→16:05)
[2019-01-07] MEDS: Amiodarone 200 MG Tab PO SCH ×2 (08:56→21:50)
[2019-01-07] MEDS: Carvedilol 25 MG Tab PO SCH (08:56)
[2019-01-07] MEDS: Tamsulosin 0.4 MG Cap.ER PO SCH (08:57)
[2019-01-07] MEDS: Cefdinir 300 MG Cap PO SCH (08:57)
[2019-01-07] MEDS: Cholecalciferol (Vitamin D3) 1,000 Unit Tab PO SCH (08:57)
[2019-01-07] MEDS: Folic Acid 1 MG Tab PO SCH (08:57)
[2019-01-07] MEDS: Metolazone 2.5 MG Tab PO SCH (08:58)
[2019-01-07] MEDS ORDERED: Lisinopril 20 MG Tab PO SCH (09:00)
--- NOTE | 2019-01-07 10:07 | PCM.PN ---
- General Info Date of Service: 01/07/19 Subjective Update: There were no acute events overnight but unfortunately late this morning the patient developed increased dizziness. Routine vital check revealed hypotension. The patient did receive a 500 mL bolus with resolution of symptoms. Still feels short of breath and still requires supplemental oxygen. No chest pain. No fevers. Good response to diuresis yesterday. Functional Status: Reports: Pain Controlled, Tolerating Diet - Review of Systems Pulmonary: Reports: Shortness of Breath Cardiovascular: Reports: Chest Pain - Patient Data Vitals - Most Recent: Last Vital Signs Temp 36.4 C 01/07/19 07:24 Pulse 89 01/07/19 08:56 Resp 16 01/07/19 07:24 BP 105/58 L 01/07/19 08:57 Pulse Ox 92 L 01/07/19 07:24 Weight - Most Recent: 91.898 kg I&O - Last 24 Hours: Intake & Output 01/06/19 01/07/19 01/07/19 22:59 06:59 14:59 Intake Total 2100 Output Total 800 500 100 Balance 1300 -500 -100 Lab Results Last 24 Hours: Laboratory Results - last 24 hr 01/07/19 01/07/19 Range/Units 05:00 05:00 PT 16.4 H (9.5-12.0) sec INR 1.53 H (0.80-1.20) Sodium 136 L (140-148) mmol/L Potassium 3.4 L (3.6-5.2) mmol/L Chloride 96 L (100-108) mmol/L Carbon Dioxide 33 H (21-32) mmol/L Anion Gap 10.4 (5.0-14.0) mmol/L BUN 24 H (7-18) mg/dL Creatinine 1.4 H (0.8-1.3) mg/dL Est Cr Clr Drug Dosing 48.57 mL/min Estimated GFR (MDRD) 49 L (>60) Glucose 114 H (74-106) mg/dL Calcium 9.0 (8.5-10.1) mg/dL Med Orders - Current: Current Medications Acetaminophen (Tylenol) 650 mg PO Q4H PRN PRN Reason: Pain (Mild 1-3)/fever Last Admin: 01/06/19 05:52 Dose: 650 mg Albuterol (Proventil Neb Soln) 2.5 mg NEB Q4H PRN PRN Reason: Shortness Of Breath/wheezing Amiodarone HCl (Cordarone) 200 mg PO BID [facility] Last Admin: 01/07/19 08:56 Dose: 200 mg Carvedilol (Coreg) 25 mg PO BID [facility] Last Admin: 01/07/19 08:56 Dose: 25 mg Cholecalciferol (Vitamin D3) 1,000 units PO DAILY [facility] Last Admin: 01/07/19 08:57 Dose: 1,000 units Diphenhydramine HCl (Benadryl) 25 mg PO BEDTIME PRN PRN Reason: Insomnia Last Admin: 01/05/19 20:46 Dose: 25 mg Docusate Sodium (Colace) 100 mg PO BID PRN PRN Reason: Constipation Last Admin: 01/05/19 21:28 Dose: 100 mg Folic Acid (Folic Acid) 0.5 mg PO DAILY [facility] Last Admin: 01/07/19 08:57 Dose: 0.5 mg Furosemide (Lasix) 40 mg IVPUSH Q8H [facility] Stop: 01/07/19 18:16 Lisinopril (Prinivil) 20 mg PO DAILY [facility] Last Admin: 01/07/19 08:57 Dose: 20 mg Metolazone (Zaroxolyn) 2.5 mg PO DAILY [facility] Last Admin: 01/07/19 08:58 Dose: 2.5 mg Morphine Sulfate (Morphine) 2 mg IVPUSH Q2H PRN PRN Reason: Pain (severe 7-10) Pantoprazole Sodium (Protonix) 40 mg PO ACBREAKFAST [facility] Last Admin: 01/07/19 07:37 Dose: 40 mg Potassium Chloride (Klor-Con M20) 40 meq PO BIDMEALS [facility] Last Admin: 01/07/19 07:37 Dose: 40 meq Pravastatin Sodium (Pravachol) 80 mg PO BEDTIME [facility] Last Admin: 01/06/19 21:47 Dose: 80 mg Sodium Chloride (Saline Flush) 10 ml FLUSH ASDIRECTED PRN PRN Reason: Keep Vein Open Sulfasalazine (Sulfasalazine) 500 mg PO QID [facility] Last Admin: 01/07/19 09:00 Dose: 500 mg Tamsulosin HCl (Flomax) 0.4 mg PO DAILY [facility] Last Admin: 01/07/19 08:57 Dose: 0.4 mg Warfarin Sodium (Coumadin) 7.5 mg PO ONETIME ONE Stop: 01/07/19 13:01 Discontinued Medications Amiodarone HCl (Cordarone) 200 mg PO BID [facility] Last Admin: 01/05/19 21:28 Dose: 200 mg Amiodarone HCl (Cordarone) 200 mg PO BID [facility] Last Admin: 01/06/19 10:50 Dose: 200 mg Carvedilol (Coreg) 25 mg PO BID [facility] Last Admin: 01/05/19 21:27 Dose: 25 mg Carvedilol (Coreg) 25 mg PO BID [facility] Last Admin: 01/06/19 10:48 Dose: 25 mg Cefdinir (Omnicef) 300 mg PO BID [facility] Last Admin: 01/05/19 21:28 Dose: 300 mg Cefdinir (Omnicef) 300 mg PO BID [facility] Last Admin: 01/06/19 10:47 Dose: 300 mg Cefdinir (Omnicef) 300 mg PO BID [facility] Last Admin: 01/07/19 08:57 Dose: 300 mg Furosemide (Lasix) 80 mg IVPUSH ONETIME ONE Stop: 01/05/19 17:01 Last Admin: 01/05/19 17:09 Dose: 80 mg Furosemide (Lasix) 40 mg PO DAILY [facility] Furosemide 20 mg/ Furosemide (40 mg) 60 mg IV Q8H [facility] Stop: 01/06/19 19:01 Last Admin: 01/06/19 18:01 Dose: 60 mg Lisinopril (Prinivil) 20 mg PO DAILY [facility] Lisinopril (Prinivil) 20 mg PO DAILY [facility] Last Admin: 01/06/19 10:52 Dose: 20 mg Pravastatin 80mg Tab ((Ptom)) 0 each PO BEDTIME [facility] Potassium Chloride (Klor-Con M20) 40 meq PO ONETIME ONE Stop: 01/06/19 09:01 Last Admin: 01/06/19 10:46 Dose: 40 meq Pravastatin Sodium (Pravachol) 80 mg PO BEDTIME [facility] Last Admin: 01/05/19 22:09 Dose: 80 mg Sodium Chloride (Saline Flush) 10 ml FLUSH ASDIRECTED PRN PRN Reason: Keep Vein Open Last Admin: 01/05/19 17:10 Dose: 10 ml Tamsulosin HCl (Flomax) 0.4 mg PO DAILY [facility] Tamsulosin HCl (Flomax) 0.4 mg PO DAILY [facility] Last Admin: 01/06/19 10:47 Dose: 0.4 mg Warfarin Sodium (Coumadin) 2.5 mg PO DAILY@1300 [facility] Warfarin Sodium (Coumadin) 5 mg PO ONETIME ONE Stop: 01/06/19 13:01 Last Admin: 01/06/19 13:16 Dose: 5 mg Warfarin Sodium (Coumadin) 2.5 mg PO DAILY@1300 [facility] - Exam Quality Assessment: Supplemental Oxygen General: Alert, Oriented, Cooperative, No Acute Distress Neck: JVD Lungs: Normal Respiratory Effort, Crackles (both lung bases) Cardiovascular: Regular Rate, Regular Rhythm, No Murmurs. No: Gallops GI/Abdominal Exam: Soft, No Distention Extremities: No Pedal Edema. No: Increased Warmth Skin: Warm, Dry Psy/Mental Status: Alert, Normal Affect - Problem List Review Problem List Initiated/Reviewed/Updated: Yes - My Orders Last 24 Hours: My Active Orders 01/06/19 10:42 Admission Status [Patient Status] [ADT] Routine 01/06/19 12:14 CPAP Noctural Home [RT BiPAP/CPAP] [RC] ASDIRECTED 01/06/19 17:00 Potassium Chloride [Klor-Con M20] 40 meq PO BIDMEALS 01/07/19 10:15 Furosemide [Lasix] 40 mg IVPUSH Q8H 01/07/19 13:00 Warfarin [Coumadin] 7.5 mg PO ONETIME ONE 01/08/19 05:00 BASIC METABOLIC PANEL,BMP [CHEM] Timed INR,PT,PROTHROMBIN TIME [COAG] Timed - Plan Plan:: ASSESSMENT AND PLAN - Acute decompensated systolic congestive heart failure - patient has pulmonary edema as well as JVD and a variety of other signs to suggest decompensated heart failure. Excellent diuresis yesterday but unfortunately hypotensive this morning. He did require a small volume replacement. Blood pressure has remained low and we will be unable to diuresis today. -Hold diuresis today -Hold carvedilol tonight -Hold lisinopril and metolazone tomorrow -Hope to resume diuresis tomorrow -cardiac monitoring -oxygen to keep sats greater than 92% -continue medical management Ventricular tachycardia - recent episodes discovered prompting transfer to tertiary care center for evaluation. Seems to be doing better now that he is on amiodarone. No telemetry abnormalities so far. -Continue amiodarone Paroxysmal atrial fibrillation - cardiac history positive AICD/Pacer, last evaluation 12/31/2018 in [place], [place]. currently in sinus rhythm with some PVCs. He is chronically anticoagulated but INR is subtherapeutic. -continue amiodarone and additional medical management -warfarin 7.5 mg today -INR in am Rheumatoid arthritis -Mtx weekly Chronic Kidney disease stage 3 - stable -I&O -BMP in am Maintenance issues -Nutrition: low salt diet -Ugalde catheter -not indicated at this time -DVT: SCD -GI; PO Protonix 40mg daily -insomnia: Benadryl 25 mg po at hs. CODE STATUS: FULL Admission status - patient will be transitioned to inpatient status with decompensated congestive heart failure with hypoxic respiratory failure Disposition - I would anticipate discharge to home with Family after the hospital stay Primary care provider: Dr. Laura, [facility] Eleuterio Doss M.D.
[2019-01-07] MEDS ORDERED: Furosemide 40 MG/4 ML VIAL IVPUSH SCH (10:15)
[2019-01-07] MEDS ORDERED: Sodium Chloride 0.9% 500 ML IV SCH (12:15)
[2019-01-07] MEDS ORDERED: Warfarin 2.5 MG Tab PO SCH (13:00)
[2019-01-07] MEDS ORDERED: Warfarin 2.5 MG Tab PO ONE (13:00)
[2019-01-07] MEDS: Pravastatin 20 MG Tab PO SCH (21:50)
[2019-01-08] MEDS: sulfaSALAzine 500 MG Tab PO SCH ×4 (05:30→21:00)
[2019-01-08] MEDS: Amiodarone 200 MG Tab PO SCH ×2 (09:14→21:00)
[2019-01-08] MEDS: Folic Acid 1 MG Tab PO SCH (09:14)
[2019-01-08] MEDS: Potassium Chloride 20 MEQ Tab.ER PO SCH ×2 (09:15→16:33)
[2019-01-08] MEDS: Cholecalciferol (Vitamin D3) 1,000 Unit Tab PO SCH (09:15)
[2019-01-08] MEDS: Tamsulosin 0.4 MG Cap.ER PO SCH (09:16)
[2019-01-08] MEDS: Pantoprazole 40 MG Tab.CR PO SCH (09:16)
--- NOTE | 2019-01-08 11:52 | PCM.PN ---
- General Info Date of Service: 01/08/19 Subjective Update: No acute events overnight. Blood pressure has slowly trended up after drop yesterday in the morning. Shortness of breath is a little better. Lower extremity edema is better. No chest pain. Oxygenation has been stable to slightly improved. Still requiring supplemental oxygen. Functional Status: Reports: Pain Controlled - Review of Systems Pulmonary: Reports: Shortness of Breath Cardiovascular: Denies: Edema - Patient Data Vitals - Most Recent: Last Vital Signs Temp 35.7 C 01/08/19 10:37 Pulse 79 01/08/19 10:37 Resp 16 01/08/19 10:37 BP 119/62 01/08/19 11:42 Pulse Ox 97 01/08/19 11:07 Weight - Most Recent: 91.898 kg I&O - Last 24 Hours: Intake & Output 01/07/19 01/08/19 01/08/19 22:59 06:59 14:59 Intake Total 300 Output Total 450 450 100 Balance -150 -450 -100 Lab Results Last 24 Hours: Laboratory Results - last 24 hr 01/08/19 Range/Units 05:00 Sodium 136 L (140-148) mmol/L Potassium 4.0 (3.6-5.2) mmol/L Chloride 98 L (100-108) mmol/L Carbon Dioxide 32 (21-32) mmol/L Anion Gap 10.0 (5.0-14.0) mmol/L BUN 31 H (7-18) mg/dL Creatinine 1.7 H (0.8-1.3) mg/dL Est Cr Clr Drug Dosing 40.00 mL/min Estimated GFR (MDRD) 39 L (>60) Glucose 110 H (74-106) mg/dL Calcium 9.0 (8.5-10.1) mg/dL Med Orders - Current: Current Medications Acetaminophen (Tylenol) 650 mg PO Q4H PRN PRN Reason: Pain (Mild 1-3)/fever Last Admin: 01/06/19 05:52 Dose: 650 mg Albuterol (Proventil Neb Soln) 2.5 mg NEB Q4H PRN PRN Reason: Shortness Of Breath/wheezing Amiodarone HCl (Cordarone) 200 mg PO BID [facility] Last Admin: 01/08/19 09:14 Dose: 200 mg Carvedilol (Coreg) 25 mg PO BID [facility] Last Admin: 01/07/19 08:56 Dose: 25 mg Cholecalciferol (Vitamin D3) 1,000 units PO DAILY [facility] Last Admin: 01/08/19 09:15 Dose: 1,000 units Diphenhydramine HCl (Benadryl) 25 mg PO BEDTIME PRN PRN Reason: Insomnia Last Admin: 01/05/19 20:46 Dose: 25 mg Docusate Sodium (Colace) 100 mg PO BID PRN PRN Reason: Constipation Last Admin: 01/05/19 21:28 Dose: 100 mg Folic Acid (Folic Acid) 0.5 mg PO DAILY [facility] Last Admin: 01/08/19 09:14 Dose: 0.5 mg Furosemide (Lasix) 40 mg IVPUSH ONETIME ONE Stop: 01/08/19 11:51 Lisinopril (Prinivil) 20 mg PO DAILY [facility] Last Admin: 01/07/19 08:57 Dose: 20 mg Metolazone (Zaroxolyn) 2.5 mg PO DAILY [facility] Last Admin: 01/07/19 08:58 Dose: 2.5 mg Morphine Sulfate (Morphine) 2 mg IVPUSH Q2H PRN PRN Reason: Pain (severe 7-10) Pantoprazole Sodium (Protonix) 40 mg PO ACBREAKFAST [facility] Last Admin: 01/08/19 09:16 Dose: 40 mg Potassium Chloride (Klor-Con M20) 40 meq PO BIDMEALS [facility] Last Admin: 01/08/19 09:15 Dose: 40 meq Pravastatin Sodium (Pravachol) 80 mg PO BEDTIME [facility] Last Admin: 01/07/19 21:50 Dose: 80 mg Sodium Chloride (Saline Flush) 10 ml FLUSH ASDIRECTED PRN PRN Reason: Keep Vein Open Sulfasalazine (Sulfasalazine) 500 mg PO QID [facility] Last Admin: 01/08/19 09:17 Dose: 500 mg Tamsulosin HCl (Flomax) 0.4 mg PO DAILY [facility] Last Admin: 01/08/19 09:16 Dose: 0.4 mg Discontinued Medications Amiodarone HCl (Cordarone) 200 mg PO BID [facility] Last Admin: 01/05/19 21:28 Dose: 200 mg Amiodarone HCl (Cordarone) 200 mg PO BID [facility] Last Admin: 01/06/19 10:50 Dose: 200 mg Carvedilol (Coreg) 25 mg PO BID [facility] Last Admin: 01/05/19 21:27 Dose: 25 mg Carvedilol (Coreg) 25 mg PO BID [facility] Last Admin: 01/06/19 10:48 Dose: 25 mg Cefdinir (Omnicef) 300 mg PO BID [facility] Last Admin: 01/05/19 21:28 Dose: 300 mg Cefdinir (Omnicef) 300 mg PO BID [facility] Last Admin: 01/06/19 10:47 Dose: 300 mg Cefdinir (Omnicef) 300 mg PO BID [facility] Last Admin: 01/07/19 08:57 Dose: 300 mg Furosemide (Lasix) 80 mg IVPUSH ONETIME ONE Stop: 01/05/19 17:01 Last Admin: 01/05/19 17:09 Dose: 80 mg Furosemide (Lasix) 40 mg PO DAILY [facility] Furosemide 20 mg/ Furosemide (40 mg) 60 mg IV Q8H [facility] Stop: 01/06/19 19:01 Last Admin: 01/06/19 18:01 Dose: 60 mg Furosemide (Lasix) 40 mg IVPUSH Q8H [facility] Stop: 01/07/19 18:16 Last Admin: 01/07/19 10:54 Dose: 40 mg Sodium Chloride (Normal Saline) 500 mls @ 500 mls/hr IV ASDIRECTED [facility] Stop: 01/07/19 13:16 Last Admin: 01/07/19 12:24 Dose: 500 mls/hr Lisinopril (Prinivil) 20 mg PO DAILY [facility] Lisinopril (Prinivil) 20 mg PO DAILY [facility] Last Admin: 01/06/19 10:52 Dose: 20 mg Pravastatin 80mg Tab ((Ptom)) 0 each PO BEDTIME [facility] Potassium Chloride (Klor-Con M20) 40 meq PO ONETIME ONE Stop: 01/06/19 09:01 Last Admin: 01/06/19 10:46 Dose: 40 meq Pravastatin Sodium (Pravachol) 80 mg PO BEDTIME [facility] Last Admin: 01/05/19 22:09 Dose: 80 mg Sodium Chloride (Saline Flush) 10 ml FLUSH ASDIRECTED PRN PRN Reason: Keep Vein Open Last Admin: 01/05/19 17:10 Dose: 10 ml Tamsulosin HCl (Flomax) 0.4 mg PO DAILY [facility] Tamsulosin HCl (Flomax) 0.4 mg PO DAILY [facility] Last Admin: 01/06/19 10:47 Dose: 0.4 mg Warfarin Sodium (Coumadin) 2.5 mg PO DAILY@1300 [facility] Warfarin Sodium (Coumadin) 5 mg PO ONETIME ONE Stop: 01/06/19 13:01 Last Admin: 01/06/19 13:16 Dose: 5 mg Warfarin Sodium (Coumadin) 2.5 mg PO DAILY@1300 [facility] Warfarin Sodium (Coumadin) 7.5 mg PO ONETIME ONE Stop: 01/07/19 13:01 Last Admin: 01/07/19 13:25 Dose: 7.5 mg - Exam Quality Assessment: Supplemental Oxygen General: Alert, Oriented, Cooperative, No Acute Distress Neck: JVD Lungs: Normal Respiratory Effort, Crackles (both bases to midlung) Cardiovascular: Regular Rate, Regular Rhythm GI/Abdominal Exam: Soft, No Distention Extremities: No Pedal Edema. No: Increased Warmth Psy/Mental Status: Alert, Normal Affect - Problem List Review Problem List Initiated/Reviewed/Updated: Yes - My Orders Last 24 Hours: My Active Orders 01/08/19 05:00 INR,PT,PROTHROMBIN TIME [COAG] Routine 01/08/19 11:50 Furosemide [Lasix] 40 mg IVPUSH ONETIME ONE 01/09/19 05:00 BASIC METABOLIC PANEL,BMP [CHEM] Timed INR,PT,PROTHROMBIN TIME [COAG] Timed - Plan Plan:: ASSESSMENT AND PLAN - Acute decompensated systolic congestive heart failure - patient has pulmonary edema as well as JVD and a variety of other signs to suggest decompensated heart failure. We were able to get a small amount of fluid off yesterday but not as much as hoped because of his hypotension. Blood pressures are better today. -Furosemide 40 mg 1 this morning -Continue carvedilol -Hold lisinopril and metolazone -cardiac monitoring -oxygen to keep sats greater than 92% -continue medical management Ventricular tachycardia - recent episodes discovered prompting transfer to tertiary care center for evaluation. Stable on amiodarone. No telemetry abnormalities so far. -Continue amiodarone Paroxysmal atrial fibrillation - cardiac history positive AICD/Pacer, last evaluation 12/31/2018 in [place], [place]. currently in sinus rhythm with some PVCs. He is chronically anticoagulated but INR remains subtherapeutic. -continue amiodarone and additional medical management -warfarin 5 mg today -INR in am Rheumatoid arthritis -Mtx weekly Chronic Kidney disease stage 3 - creatinine has elevated overnight, probably related to intravascular volume depletion from yesterday. I would anticipate that should be better/improving by tomorrow. -I&O -BMP in am Maintenance issues -Nutrition: low salt diet -Ugalde catheter -not indicated at this time -DVT: SCD -GI; PO Protonix 40mg daily -insomnia: Benadryl 25 mg po at hs. CODE STATUS: FULL Admission status - patient was transitioned to inpatient status with decompensated congestive heart failure with hypoxic respiratory failure Disposition - I would anticipate discharge to home with Family after the hospital stay Primary care provider: Dr. Laura, [facility] Eleuterio Doss M.D.
[2019-01-08] MEDS ORDERED: Furosemide 40 MG/4 ML VIAL IVPUSH ONE ×2 (12:30→17:37)
[2019-01-08] MEDS ORDERED: Warfarin 5 MG Tab PO ONE (15:30)
[2019-01-08] MEDS: Pravastatin 20 MG Tab PO SCH (21:00)
[2019-01-08] MEDS: Carvedilol 25 MG Tab PO SCH (21:00)
[2019-01-09] MEDS: sulfaSALAzine 500 MG Tab PO SCH ×4 (05:54→21:22)
[2019-01-09] MEDS: Carvedilol 25 MG Tab PO SCH ×2 (08:29→21:23)
[2019-01-09] MEDS: Folic Acid 1 MG Tab PO SCH (08:30)
[2019-01-09] MEDS: Potassium Chloride 20 MEQ Tab.ER PO SCH ×2 (08:30→17:17)
[2019-01-09] MEDS: Pantoprazole 40 MG Tab.CR PO SCH (08:31)
[2019-01-09] MEDS: Cholecalciferol (Vitamin D3) 1,000 Unit Tab PO SCH (08:31)
[2019-01-09] MEDS: Tamsulosin 0.4 MG Cap.ER PO SCH (08:32)
[2019-01-09] MEDS: Amiodarone 200 MG Tab PO SCH ×2 (08:32→21:22)
[2019-01-09] MEDS: Furosemide 40 MG/4 ML VIAL IVPUSH SCH (08:38)
--- NOTE | 2019-01-09 11:55 | PCM.PN ---
- General Info Date of Service: 01/09/19 Subjective Update: There were no acute events overnight. The patient has not experienced significant dizziness. Good diuresis yesterday. He has been able to go on several walks without significant increase in shortness of breath. No chest pain. He does continue to require supplemental oxygen. No fevers. Functional Status: Reports: Pain Controlled, Tolerating Diet - Review of Systems Pulmonary: Reports: Shortness of Breath Cardiovascular: Denies: Edema - Patient Data Vitals - Most Recent: Last Vital Signs Temp 35.8 C 01/09/19 10:45 Pulse 66 01/09/19 10:45 Resp 16 01/09/19 10:45 BP 104/63 01/09/19 10:45 Pulse Ox 97 01/09/19 10:45 Weight - Most Recent: 91.898 kg I&O - Last 24 Hours: Intake & Output 01/08/19 01/09/19 01/09/19 22:59 06:59 14:59 Intake Total 1200 Output Total 1275 850 200 Balance -1275 350 -200 Lab Results Last 24 Hours: Laboratory Results - last 24 hr 01/08/19 01/09/19 01/09/19 Range/Units 05:00 05:44 05:44 PT 19.9 H 33.5 H (9.5-12.0) sec INR 1.87 H 3.26 H (0.80-1.20) Sodium 135 L (140-148) mmol/L Potassium 4.1 (3.6-5.2) mmol/L Chloride 97 L (100-108) mmol/L Carbon Dioxide 33 H (21-32) mmol/L Anion Gap 9.1 (5.0-14.0) mmol/L BUN 29 H (7-18) mg/dL Creatinine 1.4 H (0.8-1.3) mg/dL Est Cr Clr Drug Dosing 48.57 mL/min Estimated GFR (MDRD) 49 L (>60) Glucose 97 (74-106) mg/dL Calcium 9.1 (8.5-10.1) mg/dL Med Orders - Current: Current Medications Acetaminophen (Tylenol) 650 mg PO Q4H PRN PRN Reason: Pain (Mild 1-3)/fever Last Admin: 01/06/19 05:52 Dose: 650 mg Albuterol (Proventil Neb Soln) 2.5 mg NEB Q4H PRN PRN Reason: Shortness Of Breath/wheezing Amiodarone HCl (Cordarone) 200 mg PO BID [facility] Last Admin: 01/09/19 08:32 Dose: 200 mg Carvedilol (Coreg) 25 mg PO BID [facility] Last Admin: 01/09/19 08:29 Dose: 25 mg Cholecalciferol (Vitamin D3) 1,000 units PO DAILY [facility] Last Admin: 01/09/19 08:31 Dose: 1,000 units Diphenhydramine HCl (Benadryl) 25 mg PO BEDTIME PRN PRN Reason: Insomnia Last Admin: 01/05/19 20:46 Dose: 25 mg Docusate Sodium (Colace) 100 mg PO BID PRN PRN Reason: Constipation Last Admin: 01/05/19 21:28 Dose: 100 mg Folic Acid (Folic Acid) 0.5 mg PO DAILY [facility] Last Admin: 01/09/19 08:30 Dose: 0.5 mg Furosemide (Lasix) 40 mg IVPUSH DAILY [facility] Last Admin: 01/09/19 08:38 Dose: 40 mg Lisinopril (Prinivil) 20 mg PO DAILY [facility] Last Admin: 01/07/19 08:57 Dose: 20 mg Metolazone (Zaroxolyn) 2.5 mg PO DAILY [facility] Last Admin: 01/07/19 08:58 Dose: 2.5 mg Morphine Sulfate (Morphine) 2 mg IVPUSH Q2H PRN PRN Reason: Pain (severe 7-10) Pantoprazole Sodium (Protonix) 40 mg PO ACBREAKFAST [facility] Last Admin: 01/09/19 08:31 Dose: 40 mg Potassium Chloride (Klor-Con M20) 40 meq PO BIDMEALS [facility] Last Admin: 01/09/19 08:30 Dose: 40 meq Pravastatin Sodium (Pravachol) 80 mg PO BEDTIME [facility] Last Admin: 01/08/19 21:00 Dose: 80 mg Sodium Chloride (Saline Flush) 10 ml FLUSH ASDIRECTED PRN PRN Reason: Keep Vein Open Sulfasalazine (Sulfasalazine) 500 mg PO QID [facility] Last Admin: 01/09/19 05:54 Dose: 500 mg Tamsulosin HCl (Flomax) 0.4 mg PO DAILY [facility] Last Admin: 01/09/19 08:32 Dose: 0.4 mg Discontinued Medications Amiodarone HCl (Cordarone) 200 mg PO BID [facility] Last Admin: 01/05/19 21:28 Dose: 200 mg Amiodarone HCl (Cordarone) 200 mg PO BID [facility] Last Admin: 01/06/19 10:50 Dose: 200 mg Carvedilol (Coreg) 25 mg PO BID [facility] Last Admin: 01/05/19 21:27 Dose: 25 mg Carvedilol (Coreg) 25 mg PO BID [facility] Last Admin: 01/06/19 10:48 Dose: 25 mg Cefdinir (Omnicef) 300 mg PO BID [facility] Last Admin: 01/05/19 21:28 Dose: 300 mg Cefdinir (Omnicef) 300 mg PO BID [facility] Last Admin: 01/06/19 10:47 Dose: 300 mg Cefdinir (Omnicef) 300 mg PO BID [facility] Last Admin: 01/07/19 08:57 Dose: 300 mg Furosemide (Lasix) 80 mg IVPUSH ONETIME ONE Stop: 01/05/19 17:01 Last Admin: 01/05/19 17:09 Dose: 80 mg Furosemide (Lasix) 40 mg PO DAILY [facility] Furosemide 20 mg/ Furosemide (40 mg) 60 mg IV Q8H [facility] Stop: 01/06/19 19:01 Last Admin: 01/06/19 18:01 Dose: 60 mg Furosemide (Lasix) 40 mg IVPUSH Q8H [facility] Stop: 01/07/19 18:16 Last Admin: 01/07/19 10:54 Dose: 40 mg Furosemide (Lasix) 40 mg IVPUSH ONETIME ONE Stop: 01/08/19 12:31 Last Admin: 01/08/19 13:42 Dose: 40 mg Furosemide (Lasix) 40 mg IVPUSH NOW ONE Stop: 01/08/19 17:38 Last Admin: 01/08/19 18:26 Dose: 40 mg Sodium Chloride (Normal Saline) 500 mls @ 500 mls/hr IV ASDIRECTED [facility] Stop: 01/07/19 13:16 Last Admin: 01/07/19 12:24 Dose: 500 mls/hr Lisinopril (Prinivil) 20 mg PO DAILY [facility] Lisinopril (Prinivil) 20 mg PO DAILY [facility] Last Admin: 01/06/19 10:52 Dose: 20 mg Pravastatin 80mg Tab ((Ptom)) 0 each PO BEDTIME [facility] Potassium Chloride (Klor-Con M20) 40 meq PO ONETIME ONE Stop: 01/06/19 09:01 Last Admin: 01/06/19 10:46 Dose: 40 meq Pravastatin Sodium (Pravachol) 80 mg PO BEDTIME [facility] Last Admin: 01/05/19 22:09 Dose: 80 mg Sodium Chloride (Saline Flush) 10 ml FLUSH ASDIRECTED PRN PRN Reason: Keep Vein Open Last Admin: 01/05/19 17:10 Dose: 10 ml Tamsulosin HCl (Flomax) 0.4 mg PO DAILY [facility] Tamsulosin HCl (Flomax) 0.4 mg PO DAILY [facility] Last Admin: 01/06/19 10:47 Dose: 0.4 mg Warfarin Sodium (Coumadin) 2.5 mg PO DAILY@1300 [facility] Warfarin Sodium (Coumadin) 5 mg PO ONETIME ONE Stop: 01/06/19 13:01 Last Admin: 01/06/19 13:16 Dose: 5 mg Warfarin Sodium (Coumadin) 2.5 mg PO DAILY@1300 [facility] Warfarin Sodium (Coumadin) 7.5 mg PO ONETIME ONE Stop: 01/07/19 13:01 Last Admin: 01/07/19 13:25 Dose: 7.5 mg Warfarin Sodium (Coumadin) 5 mg PO ONETIME ONE Stop: 01/08/19 15:31 Last Admin: 01/08/19 16:31 Dose: 5 mg - Exam Quality Assessment: Supplemental Oxygen General: Alert, Oriented, Cooperative, No Acute Distress Neck: JVD Lungs: Normal Respiratory Effort, Crackles (both bases) Cardiovascular: Regular Rate, Regular Rhythm, Murmurs GI/Abdominal Exam: Soft, No Distention Extremities: No Pedal Edema. No: Increased Warmth Skin: Warm, Dry Psy/Mental Status: Alert, Normal Affect - Problem List Review Problem List Initiated/Reviewed/Updated: Yes - My Orders Last 24 Hours: My Active Orders 01/09/19 09:00 Furosemide [Lasix] 40 mg IVPUSH DAILY 01/10/19 05:00 BASIC METABOLIC PANEL,BMP [CHEM] Timed INR,PT,PROTHROMBIN TIME [COAG] Timed - Plan Plan:: ASSESSMENT AND PLAN - Acute decompensated systolic congestive heart failure - slowly getting better but still had mild volume overload this morning. Still requiring supplemental oxygen but steadily improving. -Furosemide 40 mg 1 this morning -Continue carvedilol -Hold lisinopril and metolazone -cardiac monitoring -oxygen to keep sats greater than 92% -continue medical management Ventricular tachycardia - recent episodes discovered prompting transfer to tertiary care center for evaluation. Stable on amiodarone. No telemetry abnormalities so far. -Continue amiodarone Paroxysmal atrial fibrillation - cardiac history positive AICD/Pacer, last evaluation 12/31/2018 in [place], [place]. currently in sinus rhythm with some PVCs. He is chronically anticoagulated and INR is now supratherapeutic. -continue amiodarone and additional medical management -Hold warfarin -INR in am Rheumatoid arthritis -Mtx weekly Chronic Kidney disease stage 3 - creatinine has improved after recent decline in the setting of hypotension. -I&O -BMP in am Maintenance issues -Nutrition: low salt diet -Ugalde catheter -not indicated at this time -DVT: SCD -GI; PO Protonix 40mg daily Disposition - I would anticipate discharge to home with Family after the hospital stay Primary care provider: Dr. Laura, [facility] Eleuterio Doss M.D.
[2019-01-09] MEDS: Fluticasone Propionate Nasal Spray 16 GM Bottle NASBOTH SCH (17:45)
[2019-01-09] MEDS: Pravastatin 20 MG Tab PO SCH (21:22)
[2019-01-10] MEDS: sulfaSALAzine 500 MG Tab PO SCH ×2 (05:50→12:23)
[2019-01-10] MEDS: Potassium Chloride 20 MEQ Tab.ER PO SCH (08:53)
[2019-01-10] MEDS: Amiodarone 200 MG Tab PO SCH (08:53)
[2019-01-10] MEDS: Folic Acid 1 MG Tab PO SCH (08:54)
[2019-01-10] MEDS: Tamsulosin 0.4 MG Cap.ER PO SCH (08:54)
[2019-01-10] MEDS: Carvedilol 25 MG Tab PO SCH (08:55)
[2019-01-10] MEDS: Fluticasone Propionate Nasal Spray 16 GM Bottle NASBOTH SCH (08:55)
[2019-01-10] MEDS: Pantoprazole 40 MG Tab.CR PO SCH (08:56)
[2019-01-10] MEDS: Metolazone 2.5 MG Tab PO SCH (08:57)
[2019-01-10] MEDS: Cholecalciferol (Vitamin D3) 1,000 Unit Tab PO SCH (08:57)
[2019-01-10] MEDS: Furosemide 40 MG/4 ML VIAL IVPUSH SCH (08:58)
--- NOTE | 2019-01-10 11:38 | PCM.DCSUM1 ---
Discharge Summary - Hospital Course Brief History: 78-year-old male with history of coronary artery disease, recent defibrillator discharge secondary to ventricular tachycardia and chronic systolic congestive heart failure who presented with increasing shortness of breath. He was admitted for management of acute decompensated congestive heart failure with hypoxic respiratory failure. Diagnosis: Stroke: No - Discharge Data Discharge Date: 01/10/19 Discharge Disposition: Home, Self-Care 01 Condition: Good - Discharge Diagnosis/Problem(s) (1) Acute on chronic systolic CHF (congestive heart failure), NYHA class 2 SNOMED Code(s): 155042381, 289682645, 633019788 ICD Code: I50.23 - ACUTE ON CHRONIC SYSTOLIC (CONGESTIVE) HEART FAILURE Status: Acute Current Visit: Yes (2) Acute respiratory failure with hypoxia SNOMED Code(s): 10037053, 738227593 ICD Code: J96.01 - ACUTE RESPIRATORY FAILURE WITH HYPOXIA Status: Acute Current Visit: Yes (3) CKD (chronic kidney disease) stage 3, GFR 30-59 ml/min SNOMED Code(s): 438146688 ICD Code: N18.3 - CHRONIC KIDNEY DISEASE, STAGE 3 (MODERATE) Status: Chronic Current Visit: No (4) Ventricular tachycardia SNOMED Code(s): 45419623, 43385070 ICD Code: I47.2 - VENTRICULAR TACHYCARDIA Status: Chronic Current Visit: No - Patient Summary/Data Hospital Course: David presented to the emergency room with progressive shortness of breath and episodes of dizziness. He had recently had difficulty with his defibrillator firing and was evaluated in [place] for a couple of days. He had clean coronary arteries on the angiogram. He was started on amiodarone. In the emergency room workup was suggestive of acute congestive heart failure with pulmonary edema and hypoxic respiratory failure. He was admitted to the hospital for further management. Initially he was admitted to observation but was transitioned to inpatient the morning after admission with his hypoxic respiratory failure and anticipation that he would need several days of diuresis. We had an excellent response to diuresis the day after admission. Kidney function remained stable and he was symptomatically feeling better. Unfortunately the second day of admission was complicated by hypotension and he did require a small volume bolus and we were not able to diuresis him that day. The next day his creatinine had climbed some but blood pressure had improved after we held his lisinopril. We were able to diuresis gently on day 2. By day 3 his blood pressure had normalized and we are able to more aggressively diuresed him at that time. Day for had further moderately aggressive diuresis. Kidney function had started to return towards baseline. We were slowly able to wean his supplemental oxygen down and then off on the day of discharge. I believe he is euvolemic at this time. his kidney function has returned nearly to baseline. Symptomatically he is feeling well and has not had any dizziness since the second day of hospitalization. He has been up and walking around and does not have any chest pain or shortness of breath. Even with ambulation he has been able to maintain his oxygen saturations above 90%. Since he did decompensate on his 40 mg dose I elected to increase his dose slightly to 60 mg once daily. He will be monitoring his weight at home and alerting providers if he has difficulty. He has close follow-up this week with cardiology and primary care. - Patient Instructions Diet: Heart Healthy Diet Activity: As Tolerated Driving: May Drive Today Showering/Bathing: May Shower Notify Provider of: Fever, Increased Pain Other/Special Instructions: 1. You were in the hospital for management of acute decompensated systolic congestive heart failure with acute respiratory failure and hypoxia. Your condition has been improving with IV diuresis. I would recommend that we increase your furosemide dose to 60 mg once daily. I have sent a prescription for 20 mg tablets that you can take along with your 40 mg tablets. You should continue your other medications including the carvedilol and you can restart sure lisinopril tomorrow. Please continue to check your weight daily and a larger provider if you have a weight gain of more than 2 pounds in a day or 4 pounds over several days. 2. Continue your other home medications as previously prescribed. 3. Follow up as scheduled with Dr Licea and Dr Laura. 4. Seek medical attention if you have fever greater than 101, severe shortness of breath or if you develop chest pain - Discharge Plan *PRESCRIPTION DRUG MONITORING PROGRAM REVIEWED*: Not Applicable *COPY OF PRESCRIPTION DRUG MONITORING REPORT IN PATIENT MARYAN: Not Applicable Prescriptions/Med Rec: Furosemide 20 mg PO DAILY #30 tablet Home Medications: Home Meds Acetaminophen [Tylenol] 650 mg PO Q6HR PRN 01/15/18 [History] Carvedilol [Coreg] 25 mg PO BID 01/15/18 [History] Cholecalciferol (Vitamin D3) [Vitamin D3] 1,000 unit PO DAILY 01/15/18 [History] Folic Acid 400 mcg PO DAILY 01/15/18 [History] Furosemide [Lasix] 40 mg PO DAILY 01/15/18 [History] Lisinopril [Prinivil] 20 mg PO DAILY 01/15/18 [History] Methotrexate 7 tab PO WEEKLY 01/15/18 [History] Omeprazole 20 mg PO .QOD 01/15/18 [History] Pravastatin [Pravachol] 80 mg PO BEDTIME 01/15/18 [History] Tamsulosin HCl [Flomax] 0.4 mg PO DAILY 01/15/18 [History] Warfarin [Coumadin] 2.5 mg PO DAILY 01/15/18 [History] sulfaSALAzine [Azulfidine] 500 mg PO QID 01/15/18 [History] Amiodarone [Cordarone] 200 mg PO BID 01/05/19 [History] metOLazone [Metolazone] 2.5 mg PO DAILY 01/05/19 [History] Furosemide 20 mg PO DAILY #30 tablet 01/10/19 [Rx] Oxygen Therapy Mode: Room Air Patient Handouts: Heart Failure, [id number] Referrals: Kaelyn Laura MD [Family Provider] - 01/15/19 1:30 pm (Please arrive 15 minutes early to register for your appointment.) - Discharge Summary/Plan Comment DC Time >30 min.: No - Patient Data Vitals - Most Recent: Last Vital Signs Temp 35.9 C 01/10/19 11:21 Pulse 68 01/10/19 11:21 Resp 16 01/10/19 11:21 BP 103/60 01/10/19 11:21 Pulse Ox 96 01/10/19 11:21 Weight - Most Recent: 91.898 kg I&O - Last 24 hours: Intake & Output 01/09/19 01/10/19 01/10/19 22:59 06:59 14:59 Intake Total 300 Output Total 950 Balance 300 -950 Lab Results - Last 24 hrs: Laboratory Results - last 24 hr 01/10/19 01/10/19 Range/Units 05:42 05:42 PT 39.5 H (9.5-12.0) sec INR 3.88 H (0.80-1.20) Sodium 136 L (140-148) mmol/L Potassium 4.3 (3.6-5.2) mmol/L Chloride 98 L (100-108) mmol/L Carbon Dioxide 32 (21-32) mmol/L Anion Gap 10.3 (5.0-14.0) mmol/L BUN 34 H (7-18) mg/dL Creatinine 1.4 H (0.8-1.3) mg/dL Est Cr Clr Drug Dosing 48.57 mL/min Estimated GFR (MDRD) 49 L (>60) Glucose 101 (74-106) mg/dL Calcium 9.1 (8.5-10.1) mg/dL Med Orders - Current: Current Medications Acetaminophen (Tylenol) 650 mg PO Q4H PRN PRN Reason: Pain (Mild 1-3)/fever Last Admin: 01/06/19 05:52 Dose: 650 mg Albuterol (Proventil Neb Soln) 2.5 mg NEB Q4H PRN PRN Reason: Shortness Of Breath/wheezing Amiodarone HCl (Cordarone) 200 mg PO BID [facility] Last Admin: 01/10/19 08:53 Dose: 200 mg Carvedilol (Coreg) 25 mg PO BID [facility] Last Admin: 01/10/19 08:55 Dose: 25 mg Cholecalciferol (Vitamin D3) 1,000 units PO DAILY [facility] Last Admin: 01/10/19 08:57 Dose: 1,000 units Diphenhydramine HCl (Benadryl) 25 mg PO BEDTIME PRN PRN Reason: Insomnia Last Admin: 01/05/19 20:46 Dose: 25 mg Docusate Sodium (Colace) 100 mg PO BID PRN PRN Reason: Constipation Last Admin: 01/05/19 21:28 Dose: 100 mg Fluticasone Propionate (Flonase) 0 gm NASBOTH DAILY [facility] Last Admin: 01/10/19 08:55 Dose: 1 spray Folic Acid (Folic Acid) 0.5 mg PO DAILY [facility] Last Admin: 01/10/19 08:54 Dose: 0.5 mg Furosemide (Lasix) 40 mg IVPUSH DAILY [facility] Last Admin: 01/10/19 08:58 Dose: 40 mg Lisinopril (Prinivil) 20 mg PO DAILY [facility] Last Admin: 01/07/19 08:57 Dose: 20 mg Metolazone (Zaroxolyn) 2.5 mg PO DAILY [facility] Last Admin: 01/10/19 08:57 Dose: 2.5 mg Morphine Sulfate (Morphine) 2 mg IVPUSH Q2H PRN PRN Reason: Pain (severe 7-10) Pantoprazole Sodium (Protonix) 40 mg PO ACBREAKFAST [facility] Last Admin: 01/10/19 08:56 Dose: 40 mg Potassium Chloride (Klor-Con M20) 40 meq PO BIDMEALS [facility] Last Admin: 01/10/19 08:53 Dose: 40 meq Pravastatin Sodium (Pravachol) 80 mg PO BEDTIME [facility] Last Admin: 01/09/19 21:22 Dose: 80 mg Sodium Chloride (Saline Flush) 10 ml FLUSH ASDIRECTED PRN PRN Reason: Keep Vein Open Sulfasalazine (Sulfasalazine) 500 mg PO QID [facility] Last Admin: 01/10/19 05:50 Dose: 500 mg Tamsulosin HCl (Flomax) 0.4 mg PO DAILY [facility] Last Admin: 01/10/19 08:54 Dose: 0.4 mg Discontinued Medications Amiodarone HCl (Cordarone) 200 mg PO BID [facility] Last Admin: 01/05/19 21:28 Dose: 200 mg Amiodarone HCl (Cordarone) 200 mg PO BID [facility] Last Admin: 01/06/19 10:50 Dose: 200 mg Carvedilol (Coreg) 25 mg PO BID [facility] Last Admin: 01/05/19 21:27 Dose: 25 mg Carvedilol (Coreg) 25 mg PO BID [facility] Last Admin: 01/06/19 10:48 Dose: 25 mg Cefdinir (Omnicef) 300 mg PO BID [facility] Last Admin: 01/05/19 21:28 Dose: 300 mg Cefdinir (Omnicef) 300 mg PO BID [facility] Last Admin: 01/06/19 10:47 Dose: 300 mg Cefdinir (Omnicef) 300 mg PO BID [facility] Last Admin: 01/07/19 08:57 Dose: 300 mg Furosemide (Lasix) 80 mg IVPUSH ONETIME ONE Stop: 01/05/19 17:01 Last Admin: 01/05/19 17:09 Dose: 80 mg Furosemide (Lasix) 40 mg PO DAILY [facility] Furosemide 20 mg/ Furosemide (40 mg) 60 mg IV Q8H [facility] Stop: 01/06/19 19:01 Last Admin: 01/06/19 18:01 Dose: 60 mg Furosemide (Lasix) 40 mg IVPUSH Q8H [facility] Stop: 01/07/19 18:16 Last Admin: 01/07/19 10:54 Dose: 40 mg Furosemide (Lasix) 40 mg IVPUSH ONETIME ONE Stop: 01/08/19 12:31 Last Admin: 01/08/19 13:42 Dose: 40 mg Furosemide (Lasix) 40 mg IVPUSH NOW ONE Stop: 01/08/19 17:38 Last Admin: 01/08/19 18:26 Dose: 40 mg Sodium Chloride (Normal Saline) 500 mls @ 500 mls/hr IV ASDIRECTED [facility] Stop: 01/07/19 13:16 Last Admin: 01/07/19 12:24 Dose: 500 mls/hr Lisinopril (Prinivil) 20 mg PO DAILY [facility] Lisinopril (Prinivil) 20 mg PO DAILY [facility] Last Admin: 01/06/19 10:52 Dose: 20 mg Pravastatin 80mg Tab ((Ptom)) 0 each PO BEDTIME [facility] Potassium Chloride (Klor-Con M20) 40 meq PO ONETIME ONE Stop: 01/06/19 09:01 Last Admin: 01/06/19 10:46 Dose: 40 meq Pravastatin Sodium (Pravachol) 80 mg PO BEDTIME [facility] Last Admin: 01/05/19 22:09 Dose: 80 mg Sodium Chloride (Saline Flush) 10 ml FLUSH ASDIRECTED PRN PRN Reason: Keep Vein Open Last Admin: 01/05/19 17:10 Dose: 10 ml Tamsulosin HCl (Flomax) 0.4 mg PO DAILY [facility] Tamsulosin HCl (Flomax) 0.4 mg PO DAILY [facility] Last Admin: 01/06/19 10:47 Dose: 0.4 mg Warfarin Sodium (Coumadin) 2.5 mg PO DAILY@1300 [facility] Warfarin Sodium (Coumadin) 5 mg PO ONETIME ONE Stop: 01/06/19 13:01 Last Admin: 01/06/19 13:16 Dose: 5 mg Warfarin Sodium (Coumadin) 2.5 mg PO DAILY@1300 [facility] Warfarin Sodium (Coumadin) 7.5 mg PO ONETIME ONE Stop: 01/07/19 13:01 Last Admin: 01/07/19 13:25 Dose: 7.5 mg Warfarin Sodium (Coumadin) 5 mg PO ONETIME ONE Stop: 01/08/19 15:31 Last Admin: 01/08/19 16:31 Dose: 5 mg - Exam Quality Assessment: Denies: Supplemental Oxygen General: Reports: Alert, Oriented, Cooperative, No Acute Distress Lungs: Reports: Normal Respiratory Effort, Crackles (rare right lung base) Cardiovascular: Reports: Regular Rate, Regular Rhythm, Murmurs GI/Abdominal Exam: Soft, No Distention Extremities: No Pedal Edema Psy/Mental Status: Reports: Alert, Normal Affect
== END 2019-01-10 12:45 | disposition home or self-care (01) | DRG 291 ==
LOC: JP.ED 15:09 → JP.MS 19:12 → OBSVTOIN 01-06 10:42
PROVIDERS: ADMIT Internal Medicine; ATTEND Internal Medicine
DX: I13.0 Hypertensive heart and chronic kidney disease with heart failure and stage 1 through stage 4 chronic kidney disease, or unspecified chronic kidney disease (principal); I50.23 Acute on chronic systolic (congestive) heart failure; I47.2 Ventricular tachycardia; N18.3 Chronic kidney disease, stage 3 (moderate); J96.01 Acute respiratory failure with hypoxia; I48.0 Paroxysmal atrial fibrillation; I25.10 Atherosclerotic heart disease of native coronary artery without angina pectoris; M06.9 Rheumatoid arthritis, unspecified; Z95.810 Presence of automatic (implantable) cardiac defibrillator; Z79.01 Long term (current) use of anticoagulants; R06.02 Shortness of breath; R42 Dizziness and giddiness; I95.9 Hypotension, unspecified; E78.00 Pure hypercholesterolemia, unspecified; I25.2 Old myocardial infarction; G47.30 Sleep apnea, unspecified; K21.9 Gastro-esophageal reflux disease without esophagitis; Z85.828 Personal history of other malignant neoplasm of skin; H54.7 Unspecified visual loss; Z79.899 Other long term (current) drug therapy
CPT/HCPCS: 36415 ×2; 71045; 80048; 80053; 83880; 84484; 85025 ×2; 85610; 93005; 96374; 99285; A9270 ×11; J1940; 93010; 94762; G0378; J7030

== ENCOUNTER 2019-05-05 06:55 | Day surgery (SDC) | payer MEDICARE, BC ==
[2019-05-05] MEDS ORDERED: Nozin Nasal Sanitizer NASBOTH ONE (07:00)
[2019-05-05] MEDS ORDERED: Bupivacaine 0.5% 50 ML MDV ONE ×2 (07:26→08:35)
[2019-05-05] MEDS ORDERED: ceFAZolin 2 GM in Premix Bag 1 BAG IV ONE (07:30)
[2019-05-05] MEDS ORDERED: Lactated Ringers 1,000 ML IV SCH (07:30)
[2019-05-05] MEDS ORDERED: fentaNYL 100 MCG/2 ML SDV ONE (07:40)
[2019-05-05] MEDS ORDERED: Midazolam 1 MG/ML 2 ML SDV ONE (07:40)
[2019-05-05] MEDS ORDERED: Propofol 200 MG/20 ML SDV ONE ×4 (07:40→10:47)
[2019-05-05] MEDS ORDERED: Bupivacaine 0.5% 30 ML SDV ONE ×2 (08:36→09:51)
[2019-05-05] MEDS ORDERED: Lidocaine 1% 2 ML ONE (11:31)
[2019-05-05] MEDS ORDERED: Acetaminophen/oxyCODONE 325-5 MG Tab PO PRN (12:35)
--- NOTE | 2019-05-05 17:40 | OR ---
DATE OF PROCEDURE: 05/05/2019 PREOPERATIVE DIAGNOSIS: Traumatic full-thickness rotator cuff tear. POSTOPERATIVE DIAGNOSES: 1. Traumatic full-thickness rotator cuff tear including supraspinous and infraspinatus. 2. Long head biceps rupture. PROCEDURE: Arthroscopy of right shoulder with arthroscopic rotator cuff repair and subacromial decompression with acromioplasty. ANESTHESIA: Interscalene block with sedation. INDICATIONS: Mr. Mancia is a very pleasant 78-year-old gentleman who sustained a fall resulting in an injury to his right shoulder. Examination was consistent with full- thickness tear of the rotator cuff with pseudo-paralysis. He has no active abduction or forward flexion. He is able to resist internal and external rotation. Unable to obtain an MRI due to his implanted defibrillator. He is, therefore, taken to the operating room for arthroscopic evaluation of the cuff with attempted arthroscopic repair or possible mini-open repair. Risks, benefits, and potential complications of the procedure were discussed. DESCRIPTION OF PROCEDURE: After adequate anesthesia was obtained, the patient was placed in the lateral decubitus position and secured with a beanbag positioner. The right shoulder and arm were prepped and draped in a sterile fashion. Ten pounds of traction was placed in the shoulder traction unit. A standard posterior portal was established, and the glenohumeral joint was inspected. This revealed intact articular cartilage and labrum. No significant arthritic change was noted. Labrum was intact. Long head of the biceps was absent. Subscapularis was intact. However, the supraspinatus and infraspinatus showed full- thickness tears with mild retraction. The scope was withdrawn and placed in the subacromial space. Tear was confirmed with approximately a centimeter to 2 cm retraction. Moderate fraying of the coracoacromial ligament was noted with some bursitis. Using a combination of shaver and the radiofrequency ablation wand, coracoacromial ligament was taken off the anterior-inferior edge of the acromion, and the bur was used to remove the inferior aspect of the acromion, performing acromioplasty of approximately 3 to 4 mm. The superior surface of the greater tuberosity was debrided with a shaver and then lightly decorticated with a bur providing a bleeding surface for repair. The edge of the cuff tendon was also debrided with the shaver providing a fresh edge for repair. The accessory portal was established for optimum angle of placement of suture anchors. An awl was used to create a socket for a Mitek Healix anchor, placing 1 in the anterior aspect of the footprint and 1 in the posterior aspect. The Mitek ExpresSew device was then utilized to pass all 4 limbs of the anterior suture anchor through the anterior portion of the tear in the supraspinous. Both limbs of 1 of the posterior anchor sutures was passed through the tendon more posteriorly in the infraspinatus and the remaining suture pair was utilized as a simple stitch taking 1 limb of the pair through the more posterior aspect of the infraspinatus. These were then tied down using standard arthroscopic technique, starting with the anterior suture pairs, reducing the tendon over the tuberosity. Soft tissue was cleared from the edge of the tuberosity, and the 4 limbs of the anterior suture anchors were passed through a Mitek Knotless anchor, which was then secured over the edge of the tuberosity providing a suture bridge with double-row repair. This provided good flush repair of the tendon. Sutures were then cut. The more posterior sutures were then cut. The arm was taken through range of motion and the repair was stable. This was visualized both from the posterior portal and the lateral portal. Shoulder was then drained. Port sites were closed in a standard fashion, and a sterile dressing was applied. The patient tolerated the procedure very well. There were no complications, taken from the operating room in stable condition. Darien Cho MD /[id number]
== END 2019-05-05 14:40 | disposition home or self-care (01) ==
LOC: JP.SDS 06:55
PROVIDERS: ATTEND Specialist
DX: S46.011A Strain of muscle(s) and tendon(s) of the rotator cuff of right shoulder, initial encounter (principal); S46.111A Strain of muscle, fascia and tendon of long head of biceps, right arm, initial encounter; I25.10 Atherosclerotic heart disease of native coronary artery without angina pectoris; I13.0 Hypertensive heart and chronic kidney disease with heart failure and stage 1 through stage 4 chronic kidney disease, or unspecified chronic kidney disease; I50.42 Chronic combined systolic (congestive) and diastolic (congestive) heart failure; N18.3 Chronic kidney disease, stage 3 (moderate); I47.2 Ventricular tachycardia; I25.2 Old myocardial infarction; I48.0 Paroxysmal atrial fibrillation; I27.20 Pulmonary hypertension, unspecified; E78.00 Pure hypercholesterolemia, unspecified; G47.33 Obstructive sleep apnea (adult) (pediatric); M06.9 Rheumatoid arthritis, unspecified; W19.XXXA Unspecified fall, initial encounter; Z99.89 Dependence on other enabling machines and devices; Z95.810 Presence of automatic (implantable) cardiac defibrillator; Z87.891 Personal history of nicotine dependence; Z79.51 Long term (current) use of inhaled steroids; Z79.01 Long term (current) use of anticoagulants; Z79.899 Other long term (current) drug therapy
CPT/HCPCS: 36415; 85610; A9270-GY; C1713; J0690; J2001; J2250; J2704; J3010; J3490; J7120